=== PATIENT | male | born 1945 | race Caucasian/White ===

== ENCOUNTER → 2017-11-02 08:49 | Outpatient (CLI) | payer MEDICARE, OTHER, SELFPAY ==
[2017-11-02 14:22] LABS: Magnesium 1.9 mg/dL (1.4-2.2)
== END ==
PROVIDERS: PCP Nurse Practitioner Family; Visit Provider Nuclear Medicine Nuclear Cardiology
DX: I25.10 Atherosclerotic heart disease of native coronary artery without angina pectoris (principal); E11.9 Type 2 diabetes mellitus without complications; I47.2 Ventricular tachycardia; I35.1 Nonrheumatic aortic (valve) insufficiency; I71.9 Aortic aneurysm of unspecified site, without rupture; I65.23 Occlusion and stenosis of bilateral carotid arteries; R06.02 Shortness of breath; I10 Essential (primary) hypertension
CPT/HCPCS: 36415; 83735

== ENCOUNTER 2024-12-08 19:09 | Inpatient (IN) | payer MEDICARE, SELFPAY ==
[2024-12-08] VITALS (11 sets, daily range): BP systolic 134–163; BP diastolic 87–97; PULSE 63–97; RESP 18–20; TEMP 36.7; O2SAT 94–98; BMI 27.1
--- NOTE | 2024-12-08 19:30 | ECG_ITS ---
APPROVED REPORT Exam: Resting ECG HR:96 bpm ECG Measurements Heart Rate 96 AXES MI 195 P 32 QRSd 92 QRS 4 QT 349 T -2 QTc 402 Conclusion SINUS RHYTHM MODERATE VOLTAGE CRITERIA FOR LVH, CONSIDER NORMAL VARIANT [MEETS CRITERIA IN ONE OF: R(aVL), S(V1), R(V5), R(V5/V6)+S(V1)] MINIMAL ST DEPRESSION [0.025+ mV ST DEPRESSION] BORDERLINE ECG UNCONFIRMED REPORT Electronically signed by : Fatuma Jenkins, 12/09/2024 01:24:05
--- NOTE | 2024-12-08 19:46 | XR_ITS ---
PROCEDURE INFORMATION: Exam: XR Chest Exam date and time: 12/08/2024 7:59 PM Age: 79 years old Clinical indication: Other: Cp SOA palpitations TECHNIQUE: Imaging protocol: Radiologic exam of the chest. Views: 1 view. COMPARISON: No relevant prior studies available. FINDINGS: Lungs: Underlying pulmonary fibrotic and bronchiectatic changes. Poorly defined perihilar and peripheral densities/opacities. Pleural spaces: Unremarkable. No pleural effusion. No pneumothorax. Heart/Mediastinum: Unremarkable. No cardiomegaly. Bones/joints: Unremarkable. IMPRESSION: Underlying pulmonary fibrotic changes with poorly defined perihilar/peripheral possibly reflecting confluent fibrosis with anatomic distortion. Can not exclude overlying infiltration.
--- NOTE | 2024-12-08 19:52 | PC.NURSE ---
rounded on pt. family at bedside. voice no needs at this time.
[2024-12-08 20:03] LABS: Basophils % 0.4 % (0.1-2.0); Eosinophils # 0.2 K/mm3 (0.0-0.4); Eosinophils % 2.4 % (0.1-12.0); Hematocrit 44.2 % (42.0-52.0); Hemoglobin 14.7 g/dL (14.1-18.0); Lymphocytes % 21.1 % (10-50); Mean Corpuscular HGB Conc 33.3 g/dL (31.8-35.4); Mean Corpuscular Volume 93.2 fl (80-94); Mean Platelet Volume 9.4 fl (7.4-10.4); Monocytes # 0.8 K/mm3 (0.1-1.0); Monocytes % 8.6 % (1.7-9.3); Neutrophils # 6.3 K/mm3 (1.8-7.8); Neutrophils % 67.2 % (37.0-80.0); Platelet Count 223 K/mm3 (142-424); Red Blood Count 4.74 M/mm3 (4.60-6.20); White Blood Count 9.3 K/mm3 (4.8-10.8)
[2024-12-08 20:11] LABS: Alanine Aminotransferase 21 U/L (12-78); Albumin Level 3.9 g/dl (3.5-5.0); Albumin/Globulin Ratio 1.1 (1.1-1.8); Alkaline Phosphatase 105 U/L (38-126); Anion Gap 9.2 mEq/L (5-15); Aspartate Amino Transferase 30 U/L (17-59); Bilirubin,Total 0.5 mg/dl (0.2-1.3); Blood Urea Nitrogen 20 mg/dl (9-20); Carbon Dioxide 28 mmol/L (22.0-30.0); Chloride 105 mmol/L (98-107); Creatinine Clearance Estimated 72 mL/min (50-200); Estimated Glomerular Filt Rate 65 ml/min (>60); GFR (African American) 79 ML/MIN (>60); Globulin 3.6 g/dL (1.3-3.2); Glucose 121 mg/dl (74-100); Magnesium 1.8 mg/dl (1.6-2.3); Phosphorous 2.4 mg/dl (2.5-4.5); Potassium 4.2 mmoL/L (3.5-5.1); Sodium 138 mmol/L (136-145); Total Protein,Serum 7.5 g/dl (6.3-8.2)
[2024-12-08 20:15] LABS: D-Dimer 0.37 ug/mL (0.0-0.5)
[2024-12-08 20:29] LABS: Troponin I < 0.01 ng/ml (0.00-0.034)
--- NOTE | 2024-12-08 20:29 | HMH.EDGENADL ---
Discharge Plan Disposition Chief Complaint: Recheck/Abnormal Lab/Rx Prescriptions Prescriptions: No Action isosorbide dinitrate 30 mg tablet 30 mg PO DAILY losartan 25 mg tablet 25 mg PO DAILY aspirin 162.5 mg capsule,extended release 24hr 162.5 mg PO Q24H omega-3 fatty acids [Fish Oil Concentrate] 1,000 mg capsule 1,000 mg PO DAILY rosuvastatin 20 mg tablet 20 mg PO DAILY etodolac 400 mg tablet 400 mg PO DAILY tamsulosin 0.4 mg capsule,extended release 24hr 0.4 mg PO DAILY metoprolol succinate 50 mg tablet extended release 24 hr 50 mg PO DAILY Referrals Follow up/Referrals: Vandana Evans [Primary Care Provider] - See instructions Clinical Impressions Clinical Impression: Non-ST elevation (NSTEMI) myocardial infarction Stand Alone Forms Stand Alone Forms: Transfer Record - ED Print Language Print Language: Kiswahili Discharge ED Provider: Fatuma Jenkins General Adult HPI <Francie Knight APRN - Last Filed: 12/08/24 21:51> General Chief complaint: Recheck/Abnormal Lab/Rx Stated complaint: cardiac issues Time Seen by Provider: 12/08/24 19:40 Mode of Arrival: EMS Source of Information: Patient Limitations: No Limitations Description of Symptoms (Recalled from ER Triage Doc. by RN): ems was called out for complaints of high heart rate, when ems arrived they said he was in SVT with rate 180-190 ems reports patient converted to normal sinus without intervention patient recieved approx 600 ml of NS in route History of Present Illness HPI narrative: Patient is a 79-year-old male PMHx pulmonary fibrosis (2L NC), SUZETTE (Cpap at night) hypertension who presents to the ED for palpitations / chest pressure that occurred earlier today while in the shower, have resolved upon arrival. Related Data Home Medications ?Medication ?Instructions ?Recorded ?Confirmed aspirin 162.5 mg capsule,extended 162.5 mg PO Q24H 02/08/18 02/14/19 release 24 hr etodolac 400 mg tablet 400 mg PO DAILY 02/08/18 02/14/19 isosorbide dinitrate 30 mg tablet 30 mg PO DAILY 02/08/18 02/14/19 losartan 25 mg tablet 25 mg PO DAILY 02/08/18 02/14/19 metoprolol succinate 50 mg 50 mg PO DAILY 02/08/18 02/14/19 tablet,extended release 24 hr omega-3 fatty acids 1,000 mg 1,000 mg PO DAILY 02/08/18 02/14/19 capsule (Fish Oil Concentrate) rosuvastatin 20 mg tablet 20 mg PO DAILY 02/08/18 02/14/19 tamsulosin 0.4 mg capsule 0.4 mg PO DAILY 02/08/18 02/14/19 Allergies Allergy/AdvReac Type Severity Reaction Status Date / Time atorvastatin (ATORVASTATIN) Allergy Unknown muscles Verified 12/08/24 22:06 sore Penicillins (PENICILLINS) Allergy Unknown pass out Verified 12/08/24 22:06 PFSH <Francie Knight APRN - Last Filed: 12/08/24 21:51> [facility] Disclaimer: The information contained in this section may have been updated after the patient was seen, as this information can be updated by other users. Social History Smoking Status: Unknown if ever smoked alcohol intake: former current occupational status: retired Travel in the last 8 weeks: None Have you lived/traveled outside [place] in past 30 days?: No Contact w/someone who lives/traveled outside [place] past 30 days?: No Exposure to someone with infectious disease in past 14 days?: No Do you have a fever (greater than 100.4 F or 38 C)?: No Have you tested positive for COVID-19: No Exposed to someone with COVID-19 in past 14 days?: No Do you have a sore throat?: No Do you have a cough?: No Do you have any weakness?: No Do you have any diarrhea?: No Are you experiencing any unusual bleeding?: No Do you have any muscle aches/pain?: No Do you have any abdominal pain?: No Are you experiencing loss of taste or smell?: No Other Medical History Have you received the Flu Vaccine for this season: Yes Have you received the Pneumonia Vaccine: Yes <Francie Knight APRN - Last Filed: 12/08/24 21:51> ROS Obtained: Yes Systems reviewed as appropriate & no additional complaints except as documented Physical Exam <Francie Knight APRN - Last Filed: 12/08/24 21:51> General General appearance: alert and in no apparent distress Head Head exam: atraumatic and normocephalic Eye Eye exam: Present normal appearance and PERRL; Absent nystagmus ENT ENT exam: Present normal exam Neck Neck exam: Present normal inspection Chest Chest inspection: Present normal inspection and symmetric chest wall rise; Absent tenderness Respiratory Respiratory exam: Present wheezes (left side ) Cardiovascular Cardiovascular exam: Present regular rate Abdominal Exam Abdominal exam: Present soft and normal bowel sounds; Absent tenderness Extremities Exam Extremities exam: Present normal inspection and full ROM Back Exam Back exam: Present normal inspection and full ROM; Absent tenderness Neurological Exam Neurological exam: Present alert and oriented X3 Psychiatric Psychiatric exam: Present normal affect and normal mood Skin Skin exam: Present warm and dry Medical Decision Making <Francie Knight APRN - Last Filed: 12/08/24 21:51> Medical Records Screening: Per USPSTF and CDC recommendations, given the prevalence of disease in our region, it is our hospital?s policy to screen for HIV and viral Hepatitis for all patients aged 18 and over and those with ongoing risk factors. Ravi Inquiry Pt receiving controlled substance: No Ravi was queried for this patient: No Vital Signs: 12/08/24 19:09 Temperature 98.1 F Temperature Source Oral Pulse Rate [Left Radial] 95 H Respiratory Rate 20 Blood Pressure [Right Arm] 148/94 H Blood Pressure Mean [Right Arm] 112 Blood Pressure Source [Right Arm] Automatic Cuff Blood Pressure Position [Right Arm] Sitting 02 Sat by Pulse Oximetry 95 Oxygen Delivery Method Nasal Cannula Oxygen Flow Rate (LPM) 2 Lab Data Lab Results 12/08/24 19:47: WBC 9.3, RBC 4.74, Hgb 14.7, Hct 44.2, MCV 93.2, MCH 31.0, MCHC 33.3, RDW 13.0, Plt Count 223, MPV 9.4, Neut % (Auto) 67.2, Lymph % (Auto) 21.1, [place] % (Auto) 8.6, Eos % (Auto) 2.4, Baso % (Auto) 0.4, Neut # (Auto) 6.3, Lymph # (Auto) 2.0, [place] # (Auto) 0.8, Eos # (Auto) 0.2, Baso # (Auto) 0.0, D-Dimer 0.37, Sodium 138, Potassium 4.2, Chloride 105, Carbon Dioxide 28, Anion Gap 9.2, BUN 20, Creatinine 1.10, Estimated Creat Clear 72, Estimated GFR 65, Est GFR ( Amer) 79, Glucose 121 H, Calcium 9.0, Phosphorus 2.4 L, Magnesium 1.8, Total Bilirubin 0.5, AST 30, ALT 21, Alkaline Phosphatase 105, Troponin I < 0.01, Total Protein 7.5, Albumin 3.9, Globulin 3.6 H, Albumin/Globulin Ratio 1.1, TSH 5.91 H, Free T4 1.20, HCV Ab TTAY w/Rflx PCR Qn Negative, HIV Ag/Ab Combo Qual Negative 12/08/24 22:34: Troponin I 0.06 H 12/08/24 19:47 12/08/24 19:47 Orders (Tests/Meds): ORDERS Category Date Time Status CXR --portable [XR chest portable] Stat Exams 12/08/24 19:46 Completed CBC w/Auto Diff [Complete Blood Count Auto Diff] Stat Lab 12/08/24 19:47 Completed CMP [Comprehensive Metabolic Panel] Stat Lab 12/08/24 19:47 Completed D-Dimer Stat Lab 12/08/24 19:47 Completed Free T4 (Free Thyroxine) Stat Lab 12/08/24 19:47 Completed HIV Combo Stat Lab 12/08/24 19:47 Completed Hepatitis C Ab Qual. W/ RFX Stat Lab 12/08/24 19:47 Completed Magnesium Stat Lab 12/08/24 19:47 Completed Phosphorous Stat Lab 12/08/24 19:47 Completed TSH [Thyroid Stimulating Hormone] Stat Lab 12/08/24 19:47 Completed Trop I [Troponin I] Stat Lab 12/08/24 19:47 Completed Troponin I Q3H Lab 12/08/24 22:34 Completed Troponin I Q3H Lab 12/09/24 02:00 Ordered HEART Score History (anamnesis): Slightly suspicious ECG: Non-specific disturbance Age: >65 years Risk factors: 1-2 risk factors Troponin: </= normal limit HEART Score: 4 Medical Decision Narrative: In summary, patient is a 79-year-old male PMHx pulmonary fibrosis (2L NC), SUZETTE (Cpap at night) hypertension who presents to the ED for palpitations / chest pressure that occurred earlier today while in the shower, have resolved upon arrival. Patient states that he has a history of palpitations, has been worked up by cardiology in the past, had a negative cardiac echo, negative stress test. He denies any additional symptoms. Denies experiencing shortness of breath during episode of palpitations. Upon initial exam, patient is alert, oriented and cooperative. Patient is hemodynamically stable. Physical exam remarkable for wheezing on left lung field. Patient states he has had left lung wheezing for years. Differential diagnosis includes arrhythmia, ACS, pulmonary embolism, pneumonia, infectious process, Pulmonary fibrosis complications, among others Initial workup will be conducted with hematologic labs & imaging. Initial workup reviewed by me. CBC unremarkable for any leukocytosis, stable H&H. D-dimer 0.37. CMP unremarkable for any actionable abnormalities. Magnesium 1.8. First troponin < 0.01. I considered additional imaging however at this time it is not necessary due to normal labs and patient remains asymptomatic. Pending second troponin and final read of the chest x-ray, care transferred to Dr. Jenkins. <Fatuma Jenkins MD - Last Filed: 12/08/24 23:50> Medical Records Medical records reviewed: Yes I reviewed the patient's medical records. Vital Signs: 12/08/24 19:09 Temperature 98.1 F Temperature Source Oral Pulse Rate [Left Radial] 95 H Respiratory Rate 20 Blood Pressure [Right Arm] 148/94 H Blood Pressure Mean [Right Arm] 112 Blood Pressure Source [Right Arm] Automatic Cuff Blood Pressure Position [Right Arm] Sitting 02 Sat by Pulse Oximetry 95 Oxygen Delivery Method Nasal Cannula Oxygen Flow Rate (LPM) 2 Lab Data Lab Results 12/08/24 19:47: WBC 9.3, RBC 4.74, Hgb 14.7, Hct 44.2, MCV 93.2, MCH 31.0, MCHC 33.3, RDW 13.0, Plt Count 223, MPV 9.4, Neut % (Auto) 67.2, Lymph % (Auto) 21.1, [place] % (Auto) 8.6, Eos % (Auto) 2.4, Baso % (Auto) 0.4, Neut # (Auto) 6.3, Lymph # (Auto) 2.0, [place] # (Auto) 0.8, Eos # (Auto) 0.2, Baso # (Auto) 0.0, D-Dimer 0.37, Sodium 138, Potassium 4.2, Chloride 105, Carbon Dioxide 28, Anion Gap 9.2, BUN 20, Creatinine 1.10, Estimated Creat Clear 72, Estimated GFR 65, Est GFR ( Amer) 79, Glucose 121 H, Calcium 9.0, Phosphorus 2.4 L, Magnesium 1.8, Total Bilirubin 0.5, AST 30, ALT 21, Alkaline Phosphatase 105, Troponin I < 0.01, Total Protein 7.5, Albumin 3.9, Globulin 3.6 H, Albumin/Globulin Ratio 1.1, TSH 5.91 H, Free T4 1.20, HCV Ab TATY w/Rflx PCR Qn Negative, HIV Ag/Ab Combo Qual Negative 12/08/24 22:34: Troponin I 0.06 H Orders (Tests/Meds): ORDERS Category Date Time Status CXR --portable [XR chest portable] Stat Exams 12/08/24 19:46 Completed CBC w/Auto Diff [Complete Blood Count Auto Diff] Stat Lab 12/08/24 19:47 Completed CMP [Comprehensive Metabolic Panel] Stat Lab 12/08/24 19:47 Completed D-Dimer Stat Lab 12/08/24 19:47 Completed Free T4 (Free Thyroxine) Stat Lab 12/08/24 19:47 Completed HIV Combo Stat Lab 12/08/24 19:47 Completed Hepatitis C Ab Qual. W/ RFX Stat Lab 12/08/24 19:47 Completed Magnesium Stat Lab 12/08/24 19:47 Completed Phosphorous Stat Lab 12/08/24 19:47 Completed TSH [Thyroid Stimulating Hormone] Stat Lab 12/08/24 19:47 Completed Trop I [Troponin I] Stat Lab 12/08/24 19:47 Completed Troponin I Q3H Lab 12/08/24 22:34 Completed Troponin I Q3H Lab 12/09/24 02:00 Ordered ECG Data Tracing #1: I reviewed this ECG and interpreted as documented below: Sinus rhythm with a rate of 96. No QTc prolongation, no significant ST elevation/depression or evidence of acute ischemia HEART Score Troponin: 1-3x normal limit HEART Score: 5 Medical Decision Narrative: In summary, patient is a 79-year-old male PMHx pulmonary fibrosis (2L NC), SUZETTE (Cpap at night) hypertension who presents to the ED for palpitations / chest pressure that occurred earlier today while in the shower, have resolved upon arrival. Patient states that he has a history of palpitations, has been worked up by cardiology in the past, had a negative cardiac echo, negative stress test. He denies any additional symptoms. Denies experiencing shortness of breath during episode of palpitations. Upon initial exam, patient is alert, oriented and cooperative. Patient is hemodynamically stable. Physical exam remarkable for wheezing on left lung field. Patient states he has had left lung wheezing for years. Differential diagnosis includes arrhythmia, ACS, pulmonary embolism, pneumonia, infectious process, Pulmonary fibrosis complications, among others Initial workup will be conducted with hematologic labs & imaging. Initial workup reviewed by me. CBC unremarkable for any leukocytosis, stable H&H. D-dimer 0.37. CMP unremarkable for any actionable abnormalities. Magnesium 1.8. First troponin < 0.01. I considered additional imaging however at this time it is not necessary due to normal labs and patient remains asymptomatic. Pending second troponin and final read of the chest x-ray, care transferred to Dr. Jenkins. On my evaluation, patient remains hemodynamically stable and in no acute distress. Patient's repeat troponin had increased to 0.06. CXR was unremarkable aside from chronic pulmonary fibrotic changes. I discussed the patient's lab findings with the patient and his family at bedside and recommended admission for continued troponin trending and telemetry. Patient and family were in agreement with this plan. I discussed with the hospitalist who was in agreement with admission. Critical Care <Francie Knight APRN - Last Filed: 12/08/24 21:51> Critical Care Time Critical Care Time: No
[2024-12-08 20:43] LABS: Thyroid Stimulating Hormone 5.91 uIU/mL (0.465-4.68)
[2024-12-08 21:26] LABS: HIV Combo NEGATIVE (Negative)
--- NOTE | 2024-12-08 21:27 | PC.NURSE ---
rounded on pt at this time. pt given warm blanket. voices no needs. call light in reach. family at bedside.
[2024-12-08 21:34] LABS: Hepatitis C Ab Qual. W/ RFX NEGATIVE (Negative)
[2024-12-08 23:14] LABS: Troponin I 0.06 ng/ml (0.00-0.034)
--- NOTE | 2024-12-08 23:54 | P.HP_ITS ---
<Statement entered by Scooby Merino MD - 12/09/24 22:59> Personally evaluated patient and agree with plan of care as outlined by the MANAGER KNOWLEDGE. History of Present Illness *Admission Date: 12/08/24 *Reason for visit:: Rapid Heart Rate *History of present illness: The patient is a 79-year-old male with a past medical history of pulmonary fibrosis (on 2L nasal cannula), obstructive sleep apnea (CPAP at night), and hypertension, who presented to the emergency department (ED) for palpitations and chest pressure earlier today while showering, which resolved prior to arrival. EMS was called for a reported high heart rate, documenting supraventricular tachycardia (SVT) at 180-190 bpm, which spontaneously converted to normal sinus rhythm without intervention; he received 600 mL of normal saline en route. He reports a history of palpitations, previously evaluated by cardiology with a negative echocardiogram and stress test. He denies shortness of breath during the episode, additional symptoms, or recent trauma. On arrival, he was alert, oriented, and cooperative, with stable hemodynamics. On exam was notable for wheezing in the left lung field, a chronic finding per the patient consistent with his pulmonary fibrosis. Labs showed no leukocytosis (WBC 9.3), stable hemoglobin (Hgb 14.7), normal D-dimer (0.37), and creatinine 1.10 (eGFR 65). Initial troponin was <0.01, but a repeat at 22:34 jey to 0.06. TSH was elevated (5.91) with normal free T4 (1.20). Chest X-ray revealed underlying pulmonary fibrotic and bronchiectatic changes with poorly defined perihilar and peripheral densities/opacities, possibly reflecting confluent fibrosis with anatomic distortion, though overlying infiltration cannot be excluded. No pleural effusion, pneumothorax, or cardiomegaly was noted. Differential diagnosis includes arrhythmia (SVT, resolved), [id number] myocardial infarction (NSTEMI) given troponin rise, pulmonary fibrosis exacerbation or infection (new opacities, wheezing), and less likely pulmonary embolism (normal D-dimer). ED workup included labs and imaging. Initial interventions were not specified. Given the troponin elevation, chest pressure history, and new chest X-ray findings in a patient with significant pulmonary disease, admission to hospital medicine was warranted for cardiac and respiratory evaluation. The patient agreed to inpatient care after discussion. [facility] Disclaimer: The information contained in this section may have been updated after the patient was seen, as this information can be updated by other users. Social History Smoking Status: Unknown if ever smoked alcohol intake: former current occupational status: retired Travel in the last 8 weeks: None Have you lived/traveled outside [place] in past 30 days?: No Contact w/someone who lives/traveled outside US past 30 days?: No Exposure to someone with infectious disease in past 14 days?: No Do you have a fever (greater than 100.4 F or 38 C)?: No Have you tested positive for COVID-19: No Exposed to someone with COVID-19 in past 14 days?: No Do you have a sore throat?: No Do you have a cough?: No Do you have any weakness?: No Do you have any diarrhea?: No Are you experiencing any unusual bleeding?: No Do you have any muscle aches/pain?: No Do you have any abdominal pain?: No Are you experiencing loss of taste or smell?: No Other Medical History Have you received the Flu Vaccine for this season: Yes Have you received the Pneumonia Vaccine: Yes Review of Systems Review of Systems Review of systems (narrative): 13 point review of systems negative except as listed in HPI Meds Home Medications and Allergies Home Medications ?Medication ?Instructions ?Recorded ?Confirmed ?Type aspirin 162.5 mg capsule,extended 162.5 mg PO Q24H 02/08/18 02/14/19 History release 24 hr etodolac 400 mg tablet 400 mg PO DAILY 02/08/18 02/14/19 History isosorbide dinitrate 30 mg tablet 30 mg PO DAILY 02/08/18 02/14/19 History losartan 25 mg tablet 25 mg PO DAILY 02/08/18 02/14/19 History metoprolol succinate 50 mg 50 mg PO DAILY 02/08/18 02/14/19 History tablet,extended release 24 hr omega-3 fatty acids 1,000 mg 1,000 mg PO DAILY 02/08/18 02/14/19 History capsule (Fish Oil Concentrate) rosuvastatin 20 mg tablet 20 mg PO DAILY 02/08/18 02/14/19 History tamsulosin 0.4 mg capsule 0.4 mg PO DAILY 02/08/18 02/14/19 History New Prescriptions to Start Prescriptions: Allergies Allergy/AdvReac Type Severity Reaction Status Date / Time atorvastatin (ATORVASTATIN) Allergy Unknown muscles Verified 12/08/24 22:06 sore Penicillins (PENICILLINS) Allergy Unknown pass out Verified 12/08/24 22:06 Exam Data for Last 24 hours Vital signs and Labs for Last 24 Hours: Temp Pulse Resp BP Pulse Ox O2 Del Method O2 Flow Rate 98.1 F 95 H 20 148/94 H 95 Nasal Cannula 2 12/08/24 19:12/08/24 19:12/08/24 19:12/08/24 19:12/08/24 19:12/08/24 19:12/08/24 19:09 Laboratory Results - last 24 hr 12/08/24 19:47: WBC 9.3, RBC 4.74, Hgb 14.7, Hct 44.2, MCV 93.2, MCH 31.0, MCHC 33.3, RDW 13.0, Plt Count 223, MPV 9.4, Neut % (Auto) 67.2, Lymph % (Auto) 21.1, [place] % (Auto) 8.6, Eos % (Auto) 2.4, Baso % (Auto) 0.4, Neut # (Auto) 6.3, Lymph # (Auto) 2.0, [place] # (Auto) 0.8, Eos # (Auto) 0.2, Baso # (Auto) 0.0, D-Dimer 0.37, Sodium 138, Potassium 4.2, Chloride 105, Carbon Dioxide 28, Anion Gap 9.2, BUN 20, Creatinine 1.10, Estimated Creat Clear 72, Estimated GFR 65, Est GFR ( Amer) 79, Glucose 121 H, Calcium 9.0, Phosphorus 2.4 L, Magnesium 1.8, Total Bilirubin 0.5, AST 30, ALT 21, Alkaline Phosphatase 105, Troponin I < 0.01, Total Protein 7.5, Albumin 3.9, Globulin 3.6 H, Albumin/Globulin Ratio 1.1, TSH 5.91 H, Free T4 1.20, HCV Ab TATY w/Rflx PCR Qn Negative, HIV Ag/Ab Combo Qual Negative 12/08/24 22:34: Troponin I 0.06 H I & O for Last 24 hours: Intake & Output 12/05/24 12/06/24 12/07/24 12/08/24 23:59 23:59 23:59 23:59 Weight 90.718 kg Constitutional Constitutional: no acute distress *Routine HEENT Exam Head: Present normocephalic Eye: Present EOMI and PERRL ENT: Present mucous membranes moist *Routine Neck Exam Neck: Present supple; Absent lymphadenopathy *Routine Respiratory Exam Respiratory: Present CTA bilaterally *Routine Cardiovascular Exam Cardiovascular: Present RRR *Routine Abdominal Exam Abdominal: Present soft and normoactive bowel sounds; Absent tenderness *Routine Rectal Exam Rectal:: deferred *Routine Genitalia Exam Genitalia:: deferred *Routine Extremities Exam Extremities: Absent cyanosis, clubbing or edema *Routine Skin Exam Skin: Present warm; Absent rash *Routine Neurological Exam Neurological: Present alert and oriented X3 Assessment and Plan *Assessment and plan (1) Non-ST elevation (NSTEMI) myocardial infarction: Status: Acute Category: Medical Code(s): I21.4 - Non-ST elevation (NSTEMI) myocardial infarction (2) SVT (supraventricular tachycardia): Status: Acute Category: Medical Code(s): I47.10 - Supraventricular tachycardia, unspecified (3) Pulmonary fibrosis: Status: Acute Category: Medical Code(s): J84.10 - Pulmonary fibrosis, unspecified Plan * Resolved SVT with troponin elevation (possible NSTEMI) * Pertinent Info: Palpitations/chest pressure today, EMS noted SVT (180-190 bpm) converting to NSR without intervention. Initial troponin <0.01, repeat 0.06 at 22:34. Prior negative echo/stress test. No ongoing chest pain; hemodynamically stable. CXR without cardiomegaly. * Start aspirin 81 mg PO daily and heparin 5000 units SC BID (low-dose, bridge to workup). * Serial troponins q6h x 3; ECG with symptoms to monitor for ischemic changes. * Cardiology consult for risk stratification; consider repeat echo or stress test if troponins rise further. * Telemetry monitoring for arrhythmia recurrence (SVT history). * Hold beta-blockers (e.g., metoprolol) until pulmonary status clarified (wheezing, fibrosis). * Cardiology consult * Pulmonary fibrosis with new opacities (possible exacerbation or infection) * Pertinent Info: Chronic left-sided wheezing (per patient), CXR shows fibrotic/bronchiectatic changes with new perihilar/peripheral opacities (confluent fibrosis vs. infiltration). On 2L NC, no SOB during episode. No leukocytosis (WBC 9.3), afebrile. * Continue 2L NC, titrate to SpO2 >90%; monitor RR and O2 sat q4h. * Order sputum culture and procalcitonin to assess for infection (e.g., pneumonia). * Chest CT (high-resolution) to differentiate fibrosis progression vs. infiltrates; compare to prior if available. * Trial albuterol MDI 2 puffs q4h PRN wheezing; avoid steroids now (no clear exacerbation, troponin concern). * Pulmonary consult for fibrosis management if course suggests; assess home regimen (e.g., antifibrotics like pirfenidone). * Obstructive sleep apnea * Pertinent Info: On CPAP at night; no hypoxia reported beyond baseline (2L NC). May contribute to SVT risk. * Continue CPAP use overnight; ensure compliance (bring from home if needed). * Monitor SpO2 overnight; adjust O2 if desaturations occur. * Sleep study review if outdated (SUZETTE severity unknown). * Hypertension (chronic) * Pertinent Info: Stable BP on arrival; no home meds listed. SVT history may reflect autonomic dysregulation. * Monitor BP q6h; resume home meds (e.g., lisinopril) if known, hold if hypotensive. * Assess for hypertensive urgency during prior SVT (EMS data limited). * Subclinical hypothyroidism * Pertinent Info: TSH 5.91, free T4 1.20 (normal); no symptoms reported. Could contribute to arrhythmia risk. * Recheck TSH/free T4 in 24h; consider levothyroxine 25 mcg PO daily if TSH persists >5. * Endocrine consult if symptomatic or arrhythmia link suspected. * Mild renal dysfunction * Pertinent Info: Cr 1.10, eGFR 65; likely chronic (age-related). No NILDA (BUN 20 stable). * Monitor Cr/BUN q48h; adjust meds for eGFR 65 (e.g., heparin safe). * Strict I/Os to track fluid status (600 mL NS given). * Supportive care * DVT prophylaxis with heparin 5000 units SC BID * Diet as tolerated; no nausea reported. * Family updated; confirm prior cardiac/pulmonary workup details if possible. Disposition: The patient will be admitted to the medical floor under the hospitalist service for management of resolved SVT with troponin elevation (possible NSTEMI) and pulmonary fibrosis with new opacities (possible exacerbation or infection). He requires telemetry, serial troponins, and pulmonary evaluation, with an anticipated length of stay of 3-5 days, pending cardiac stability (troponin trend, no SVT recurrence) and respiratory clarification (CT, cultures). ICU transfer if troponins rise significantly (e.g., >0.1 with ECG changes), SVT recurs with instability, or hypoxia worsens (e.g., O2 >6L, RR >30). Discharge planning will coordinate with cardiology/pulmonology for outpatient follow-up and CPAP optimization. Goals of care discussion if clinical decline occurs, given pulmonary fibrosis prognosis.
--- NOTE | 2024-12-08 23:57 | CT_ITS ---
PROCEDURE INFORMATION: Exam: CT Chest Without Contrast; Diagnostic; High Resolution Exam date and time: 12/09/2024 12:17 AM Age: 79 years old Clinical indication: Abnormal findings; Abnormal radiologic exam of lung or chest; Additional info: Svt in the setting of pulmonary fibrosis TECHNIQUE: Imaging protocol: Diagnostic computed tomography of the chest without contrast. Exam was performed with high resolution protocol. Radiation optimization: All CT scans at this facility use at least one of these dose optimization techniques: automated exposure control; mA and/or kV adjustment per patient size (includes targeted exams where dose is matched to clinical indication); or iterative reconstruction. COMPARISON: CR XR CHEST PORTABLE 12/08/2024 7:59 PM FINDINGS: Lungs: Reticuloseptal thickening, traction bronchiectasis, honeycombing, architectural distortion, interlobular reticular opacity in peripheral and mid to lower lung zone predominant distribution. Pleural spaces: Irregular pleural Heart: Unremarkable. No cardiomegaly. No pericardial effusion. Coronary arteries: Atherosclerotic calcification of coronary arteries. Vasculature: Atherosclerotic calcification of thoracic aorta without aneurysm. Lymph nodes: Reactive type mediastinal lymph nodes. Bones/joints: Unremarkable. No acute fracture. Soft tissues: Unremarkable. IMPRESSION: Advanced, pulmonary fibrotic changes without acute findings identified.
[2024-12-09] VITALS (21 sets, daily range): BP systolic 88–162; BP diastolic 49–89; PULSE 58–100; RESP 16–20; TEMP 36.4–36.8; O2SAT 90–98; BMI 26.9
--- NOTE | 2024-12-09 | IR_ITS ---
APPROVED REPORT Patient Location: Inpatient Sailboat Captain: Adithya Wong, RT (R) PROCEDURES 1. Left heart catheterization 2. Selective coronary arteriography 3. Left ventriculography INDICATION 1. Unstable angina, 2. Coronary artery disease SCAI INDICATION Patient is a 79-year-old white male with known coronary disease who presented with pressure tightness and heaviness in the chest. Palpitations and fluttering of the heart. Found to be in supraventricular tachycardia and converted on his own. Slight leak of cardiac enzymes but minimal. Secondary to this referred directly for left heart catheterization Informed consent was obtained prior to the procedure. COMPLICATIONS None Estimated Blood Loss: Less than 10 mls TECHNIQUE One percent lidocaine used to anesthetize the right anterior aspect of the wrist. The right radial artery was accessed via the Seldinger technique. A 6 [place]awk sheath was placed in the right radial artery. 2.5 mg of Verapamil, 800 mcg of nitroglycerin, 1mg Lidocaine and 5000 U Heparin were given through the arterial sheath. The papa catheter was also used to perform left heart catheterization, left ventriculogram and selective coronary angiogram. At the end of the procedure the sheath was removed good hemostasis was achieved using Traclet band, patient was transferred to the postop holding area in stable condition. ANGIOGRAPHIC RESULTS The left main artery Angiographically normal The left anterior descending artery Had mild diffuse coronary calcification throughout its course. There is a stent in the proximal vessel free of disease. There was also a stent in the mid left anterior descending which was free of disease. Moderate luminal irregularities The circumflex artery Moderate in size. Mild calcification throughout the proximal and mid vessel with smooth diffuse 20 to 30% stenoses The right coronary artery Large and dominant. There is smooth 40 to 50% ostial/proximal stenosis. No damping of pressure. Good reflux of contrast. Moderate calcification throughout the right coronary artery. There is a 40% napkin ring distal stenosis prior to the takeoff of the large posterior descending artery and posterior lateral branch. Excellent flow into the distal vessel. Calcification versus stent in the mid posterior lateral branch of the right coronary artery. No significant stenoses at that level The BEE ventriculogram reveals Normal left ventricular systolic function with an ejection fraction of 60% The left ventricular end-diastolic pressure 10 Right radial sheath removed and radial band placed without difficulty IMPRESSION 1. Mild to moderate diffuse coronary artery disease 2. Moderate diffuse coronary calcification 3. Patent stent in the proximal and mid left anterior descending 4. Patent stent versus calcium in the mid posterior lateral branch of the right coronary artery 5. Normal left ventricular systolic function 6. Normal left ventricular end-diastolic pressure 7. Successful placement of a radial band on the right radial artery PLAN 1. Patient will continue with aggressive medical therapy. Nothing appears to be greater than 40-50% at this time. Smooth stenoses in the right coronary artery which is a very large vessel in the ostial/proximal and distal portion. Excellent flow to the posterior descending artery and posterior lateral branches. Patient was tachycardic and in supraventricular tachycardia. No significant leak of cardiac enzymes. Asymptomatic since back in normal sinus rhythm. Will continue with aggressive medical therapy. No intervention needed at this time. Left ventricular function is normal. Follow-up in cardiology clinic in 1 to 2 weeks for further evaluation and treatment Electronically signed by : Navarro Eason MD 12/09/2024 15:03:59
--- NOTE | 2024-12-09 00:24 | PC.NURSE ---
report called to Louise RN at this time.
--- NOTE | 2024-12-09 00:31 | PC.NURSE ---
pt back in room from CT
--- NOTE | 2024-12-09 00:57 | PC.NURSE ---
Patient arrived to floor via wheelchair from ED at 00:55.
[2024-12-09] MEDS: HEPARIN SODIUM 5,000 UNIT/ML VIAL 5000 UNIT SUBCUT ×2 (01:06→09:49)
--- NOTE | 2024-12-09 01:15 | PC.NURSE ---
Confirmed the patient's NPO diet with Becky GONZALEZ at this time. He stated to keep the patient NPO, but is allowing a few ice chips.
--- NOTE | 2024-12-09 01:30 | PC.NURSE ---
Addendum entered by Louise Kinney RN 12/09/24 03:14: Nasal cannula is humidified. Addendum entered by Louise Kinney RN 12/09/24 03:09: At this time, the patient requested to remove the CPAP mask. He stated that he could not sleep with it on, and the CPAP machine was too noisy for him. Nasal cannula (2 L oxygen flow) was reapplied. Respiratory was informed about this. When asked, the patient stated that he can have someone bring his own personal CPAP machine at home tomorrow, as applicable. Original Note: Respiratory was paged at 01:26 for bedtime CPAP application.
[2024-12-09 01:34] LABS: INR 0.99 (0.9-1.1); Prothrombin Time 11.1 seconds (10.1-12.5)
[2024-12-09 01:50] LABS: Troponin I 0.07 ng/ml (0.00-0.034)
--- NOTE | 2024-12-09 04:11 | PC.NURSE ---
Mr Sheldon Quesada was newly admitted this shift on behalf of an NSTEMI + SVT. Thus far, the patient has not had any complaints of chest pain nor heart palpitations. The patient has been running normal sinus rhythm on telemetry this shift. Vital signs are stable. Troponins elevated. A CPAP machine was attempted to be utilized by the patient tonight, but the patient requested it to be removed soon after due to interruption of sleep (see prior note). Oxygen saturations remain > 90% on 2 L of oxygen via nasal cannula. Upon auscultation of his lungs, diminished sounds throughout and crackles in the base was heard on the left side, and clear but diminished sounds were heard throughout on the right side. Auscultation of his heart and bowels were within normal findings. Admission assessment and home medication reconciliation was completed this shift by the charge nurse (Gavin Mcknight RN). Patient is ambulatory. At this time, the patient is resting in bed without any further complaints; eyes are closed and respirations are even/unlabored. No acute changes noted thus far. Call light within reach.
[2024-12-09 04:25] LABS: INR 1.01 (0.9-1.1); Prothrombin Time 11.3 seconds (10.1-12.5)
[2024-12-09 04:29] LABS: Chloride 103 mmol/L (98-107); Potassium 4.4 mmoL/L (3.5-5.1); Sodium 137 mmol/L (136-145)
[2024-12-09 04:31] LABS: Blood Urea Nitrogen 18 mg/dl (9-20); Creatinine Clearance Estimated 79 mL/min (50-200); Estimated Glomerular Filt Rate 72 ml/min (>60); GFR (African American) 88 ML/MIN (>60)
[2024-12-09 04:32] LABS: Anion Gap 8.4 mEq/L (5-15); Calcium 8.7 mg/dl (8.4-10.2); Carbon Dioxide 30 mmol/L (22.0-30.0); Cholesterol 122 mg/dl (140-200); Glucose 114 mg/dl (74-100); Phosphorous 3.3 mg/dl (2.5-4.5); Triglycerides 92 mg/dl (30-150); VLDL Cholesterol 18 mg/dL (0-40)
[2024-12-09 04:33] LABS: Chol/HDL Ratio 3.3 (1-3.5); HDL Cholesterol 37 mg/dl (40-60); Magnesium 1.9 mg/dl (1.6-2.3)
[2024-12-09 04:43] LABS: Direct LDL Cholesterol 57.49 mg/dL (100-129)
[2024-12-09 04:53] LABS: Troponin I 0.07 ng/ml (0.00-0.034)
[2024-12-09 04:57] LABS: Basophils % 0.5 % (0.1-2.0); Eosinophils # 0.1 K/mm3 (0.0-0.4); Eosinophils % 1.6 % (0.1-12.0); Hematocrit 41.1 % (42.0-52.0); Hemoglobin 13.8 g/dL (14.1-18.0); Lymphocytes # 2.1 K/mm3 (0.7-4.5); Lymphocytes % 25.5 % (10-50); Mean Corpuscular HGB Conc 33.6 g/dL (31.8-35.4); Mean Corpuscular Hemoglobin 31.4 pg (27.0-31.2); Mean Corpuscular Volume 93.6 fl (80-94); Mean Platelet Volume 9.6 fl (7.4-10.4); Monocytes # 0.7 K/mm3 (0.1-1.0); Monocytes % 8.2 % (1.7-9.3); Neutrophils # 5.2 K/mm3 (1.8-7.8); Neutrophils % 63.7 % (37.0-80.0); Platelet Count 213 K/mm3 (142-424); Red Blood Count 4.39 M/mm3 (4.60-6.20); Red Cell Distribution Width 12.9 % (11.5-17.5); White Blood Count 8.1 K/mm3 (4.8-10.8)
--- NOTE | 2024-12-09 07:59 | HMH.PHAINT1 ---
Pharmacy Intervention Comments: MEDICATION RECONCILIATION COMPLETED ON PATIENT USING EXTERNAL FILL HISTORY FROM PHARMACY. -MAIA HOBBS, JOSELYND
--- NOTE | 2024-12-09 09:23 | CA_ITS ---
APPROVED REPORT EXAM: Comprehensive 2D, Doppler, and color-flow Echocardiogram Housing Coordinator: Marium Dowd RVT Ht: 6 ft 0 in Wt: 199lbs BSA: 2.13 BP: 148/94 mmHg Indications: NSTEMI,SVT,SUZETTE,PULMONARY FIBROSIS,HTN,CAD,HX ABLATION TDS-OVERLAYING LUNG 2D Dimensions IVSd 0.75 cm M: 0.6-1.2 LVEF (Visual) 61.50 % PWd 0.82 cm M: 0.6 - 1.2 LA Volume 36.80 mL LVDd 4.95 cm M: 4.2 - 5.9 LA Volume Index 17.28 mL/m2 (M/F) 16-34 LVDs 3.31 cm M: 2.5 - 4.0 M-Mode Dimensions LA Diam 4.88 cm (1.9-4.0) TAPSE 2.07 (<1.7) LV Diastology E Decel Time 200 (160-240 msec) E/A Ratio 1.1 Aortic Valve AKIKO Index 1.72 cm2/m2 AoV Peak [place]. 131.0 (50-130 cm/s) AI PHT 3808.00 ms AO Peak GR. 6.80 mmHg AO Mean GR. 3.70 (<5 mmHg) AO VTI 27.3 (18-25 cm) AKIKO (VTI) 3.74 (2.5-4.5 cm2) Mitral Valve MV E Max [place]. 95.0 (40-130 cm/s) MV A Velocity 85.0 (40-130 cm/s) E/A Ratio 1.11 MV PHT 59.0 ms Pulmonary Valve PV Peak Velocity 57.0 (50-150 cm/s) Tricuspid Valve TR P. Velocity 265.00 cm/s RAP Estimate 10.00 mmHg RVSP 38.00 mmHg Left Ventricle The left ventricle is normal size. The left ventricular systolic function is normal. The left ventricular ejection fraction is within the normal range. There is increased LV wall thickness. There is normal LV segmental wall motion. Transmitral Doppler flow pattern suggests impaired LV relaxation. LVEF is 55%. Right Ventricle The right ventricle is mildly dilated. The right ventricular systolic function is normal. Atria Left atrium is mildly dilated. Right atrium is mildly dilated. There is no Doppler evidence of interatrial shunt. Aortic Valve The aortic valve is mildly thickened. Mild aortic regurgitation. There is no aortic valvular stenosis. Mitral Valve The mitral valve is normal in structure. No evidence of mitral valve stenosis. Trace mitral regurgitation. Tricuspid Valve Tricuspid valve is grossly normal in structure and function. Trace tricuspid regurgitation. There is insufficient TR jet to estimate RVSP. Pulmonic Valve The pulmonary valve is normal in structure. Trace pulmonic regurgitation. Great Vessels The aortic root is normal in size. IVC is normal in size and collapses >50% with inspiration. Pericardium There is no pericardial effusion. Other Information Study Quality: Fair Conclusion Normal biventricular systolic function. Mild RV dilation. Mild biatrial dilation. Mild AI. Electronically signed by : Apurva Velasco MD 12/10/2024 11:48:54
[2024-12-09] MEDS: MAGNESIUM SULFATE IN WATER 2 GM/50 ML PIGGYBACK IV (09:45)
[2024-12-09] MEDS: LEVOTHYROXINE 50MCG (0.05MG) TAB 50 MCG PO (09:49)
[2024-12-09] MEDS: TAMSULOSIN 0.4MG CAPSULE 0.4 MG PO (09:49)
[2024-12-09] MEDS: ASPIRIN EC 81MG TABLET 81 MG PO (09:49)
[2024-12-09] MEDS: CLOPIDOGREL 75MG TAB 75 MG PO (09:49)
[2024-12-09] MEDS: METOPROLOL SUCCINATE XL 50MG TABLET 50 MG PO (09:49)
[2024-12-09] MEDS: IRBESARTAN 75MG TABLET 37.5 MG PO (09:49)
[2024-12-09] MEDS: ISOSORBIDE MONO 30MG TAB.ER.24H 30 MG PO (09:49)
[2024-12-09 11:18] LABS: NT Pro Brain Natriuretic Pep. 393 pg/mL (0-450)
[2024-12-09 11:29] LABS: Adenovirus,PCR Not Detected (NotDetected); Bordetella Pertussis Not Detected (NotDetected); Chlamydophila Pneumoniae, PCR Not Detected (NotDetected); Coronavirus 19, PCR Not Detected (NotDetected); Coronavirus 229E Not Detected (NotDetected); Coronavirus NL63 Not Detected (NotDetected); Coronavirus OC43 Not Detected (NotDetected); Coronovirus HKU1,PCR Not Detected (NotDetected); Human Metapneumovirus Not Detected (NotDetected); Influenza A, PCR Not Detected (NotDetected); Influenza AH1, 2009 Not Detected (NotDetected); Influenza AH1, PCR Not Detected (NotDetected); Influenza AH3,PCR Not Detected (NotDetected); Influenza B, PCR Not Detected (NotDetected); Mycoplasma Pneumoniae, PCR Not Detected (NotDetected); Parainfluenza 1, PCR Not Detected (NotDetected); Parainfluenza 2, PCR Not Detected (NotDetected); Parainfluenza 3, PCR Not Detected (NotDetected); Parainfluenza 4, PCR Not Detected (NotDetected); Respiratory Syncytial Virus Not Detected (NotDetected); Rhinovirus/Enterovirus Not Detected (NotDetected)
--- NOTE | 2024-12-09 12:11 | P.CONCA_ITS ---
History of Present Illness History of Present Illness Consult date: 12/09/24 Requesting physician: Scooby Merino Chief complaint: racing of the heart History of present illness: This is a 79-year-old white gentleman who presented to the emergency department with complaints of palpitations and a rapid heart rate. The patient does have a past medical history of pulmonary fibrosis, obstructive sleep apnea, coronary artery disease status post stenting, hypertension and hyperlipidemia. The patient states that he got in the shower on Monday night when he had sudden onset of palpitations and racing of the heart. He states that he felt like his heart was going to beat out of his chest. He states that he got out of the shower and sat down he tried to bear down like he was having a bowel movement but this did not break the episode. He called EMS. When EMS arrived they reported that he had a high heart rate documenting in SVT with a heart rate at 180 to 190 bpm. This spontaneously converted to sinus rhythm without intervention. The patient denied having any chest pain or pressure. He states that he is constantly short of breath. He states that he is short of breath at rest and it is significantly worse with exertion. He states that the shortness of breath does improve with rest but does not completely resolve. He denies any lower extremity edema. He denies any fever, chills, nausea, vomiting, diarrhea, PND or orthopnea. Upon arrival to the emergency department the patient initially had a negative troponin but then repeat troponin was elevated at 0.06 and then elevated to 0.07 consistent with a non-STEMI. The patient was admitted to the hospital for further evaluation and treatment. [facility] Disclaimer: The information contained in this section may have been updated after the patient was seen, as this information can be updated by other users. Medical History (Updated 12/09/24 @ 12:21 by Sri Garza APRN) Hyperlipidemia Coronary artery disease Osteoarthritis Hypertension Prostate cancer History of left heart catheterization Surgical History (Updated 12/09/24 @ 12:21 by Sri Garza APRN) History of coronary artery stent placement History of prior ablation treatment History of cardiac ablation for atrial fibrillation H/O hernia repair History of appendectomy Social History (Updated 12/09/24 @ 01:19 by Cleopatra Mcknight RN) Smoking Status: Never smoker alcohol intake: never current occupational status: retired Travel in the last 8 weeks: None Have you lived/traveled outside [place] in past 30 days?: No Contact w/someone who lives/traveled outside [place] past 30 days?: No Exposure to someone with infectious disease in past 14 days?: No Do you have a fever (greater than 100.4 F or 38 C)?: No Have you tested positive for COVID-19: No Exposed to someone with COVID-19 in past 14 days?: No Do you have a sore throat?: No Do you have a cough?: No Do you have any weakness?: No Are you experiencing any nausea/vomitting?: No Do you have any diarrhea?: No Are you experiencing any unusual bleeding?: No Do you have any muscle aches/pain?: No Do you have any abdominal pain?: No Are you experiencing loss of taste or smell?: No Review of Systems Review of Systems Review of systems:: pertinent systems reviewed and negative unless documented below Constitutional Constitutional: Reports system reviewed and no additional complaints, except as documented Eyes Eyes: Reports system reviewed and no additional complaints, except as documented ENT Ears, Nose, Mouth, and Throat: Reports system reviewed and no additional complaints, except as documented *Cardiovascular Cardiovascular: Reports system reviewed and no additional complaints, except as documented, Denies chest pain, Reports dyspnea, Reports dyspnea on exertion, Reports orthopnea, Reports palpitations and Reports rapid heart rate *Respiratory Respiratory: Reports system reviewed and no additional complaints, except as documented, Reports dyspnea and Reports dyspnea on exertion *Gastrointestinal Gastrointestinal: Reports system reviewed and no additional complaints, except as documented *Genitourinary Genitourinary: Reports system reviewed and no additional complaints, except as documented *Musculoskeletal Musculoskeletal: Reports system reviewed and no additional complaints, except as documented Integumentary/Breasts Skin/Breast: Reports system reviewed and no additional complaints, except as documented *Neurologic Neurologic: Reports system reviewed and no additional complaints, except as documented Psychiatric Psychiatric: Reports system reviewed and no additional complaints, except as documented Endocrine Endocrine: Reports system reviewed and no additional complaints, except as documented and Reports palpitations Hematologic/Lymphatic Hematologic/Lymphatic: Reports system reviewed and no additional complaints, except as documented Allergic/Immunologic Allergic/Immunologic: Reports system reviewed and no additional complaints, except as documented Exam Data for Last 24 hours Vital signs and Labs for Last 24 Hours: Temp Pulse Resp BP Pulse Ox O2 Del Method O2 Flow Rate 98.3 F 63 18 128/73 96 Nasal Cannula 2 12/09/24 11:12 12/09/24 11:12 12/09/24 11:12 12/09/24 11:12 12/09/24 11:12 12/09/24 11:12 12/09/24 11:12 Laboratory Results - last 24 hr 12/08/24 19:47: WBC 9.3, RBC 4.74, Hgb 14.7, Hct 44.2, MCV 93.2, MCH 31.0, MCHC 33.3, RDW 13.0, Plt Count 223, MPV 9.4, Neut % (Auto) 67.2, Lymph % (Auto) 21.1, [place] % (Auto) 8.6, Eos % (Auto) 2.4, Baso % (Auto) 0.4, Neut # (Auto) 6.3, Lymph # (Auto) 2.0, [place] # (Auto) 0.8, Eos # (Auto) 0.2, Baso # (Auto) 0.0, D-Dimer 0. 37, Sodium 138, Potassium 4.2, Chloride 105, Carbon Dioxide 28, Anion Gap 9.2, BUN 20, Creatinine 1.10, Estimated Creat Clear 72, Estimated GFR 65, Est GFR ( Amer) 79, Glucose 121 H, Calcium 9.0, Phosphorus 2.4 L, Magnesium 1.8, Total Bilirubin 0.5, AST 30, ALT 21, Alkaline Phosphatase 105, Troponin I < 0.01, Total Protein 7.5, Albumin 3.9, Globulin 3.6 H, Albumin/Globulin Ratio 1.1, TSH 5.91 H, Free T4 1.20, HCV Ab TATY w/Rflx PCR Qn Negative, HIV Ag/Ab Combo Qual Negative 12/08/24 22:34: Troponin I 0.06 H 12/09/24 01:15: PT 11.1, INR 0.99, Troponin I 0.07 H 12/09/24 03:55: WBC 8.1, RBC 4.39 L, Hgb 13.8 L, Hct 41.1 L, MCV 93.6, MCH 31.4 H, MCHC 33.6, RDW 12.9, Plt Count 213, MPV 9.6, Neut % (Auto) 63.7, Lymph % (Auto) 25.5, [place] % (Auto) 8.2, Eos % (Auto) 1.6, Baso % (Auto) 0.5, Neut # (Auto) 5.2, Lymph # (Auto) 2.1, [place] # (Auto) 0.7, Eos # (Auto) 0.1, Baso # (Auto) 0.0, PT 11.3, INR 1.01, Sodium 137, Potassium 4.4, Chloride 103, Carbon Dioxide 30, Anion Gap 8.4, BUN 18, Creatinine 1.00, Estimated Creat Clear 79, Estimated GFR 72, Est GFR ( Amer) 88, Glucose 114 H, Calcium 8.7, Phosphorus 3.3 D, Magnesium 1.9, Troponin I 0.07 H, NT-Pro-B Natriuret Pep 393, Triglycerides 92, Cholesterol 122 L, LDL Cholesterol Direct 57.49 L, VLDL Cholesterol 18, HDL Cholesterol 37 L, Cholesterol/HDL Ratio 3.3 I & O for Last 24 hours: Intake & Output 12/06/24 12/07/24 12/08/24 12/09/24 23:59 23:59 23:59 23:59 Intake Total 410 / 410 Output Total 0 / 0 Balance 410 / 410 Weight 200 lb 199 lb Constitutional Constitutional: no acute distress and average body habitus *Routine HEENT Exam Head: Present normocephalic and atraumatic ENT: Present mucous membranes moist *Routine Neck Exam Neck: Present supple, full ROM and normal carotid upstroke; Absent JVD, carotid bruit or lymphadenopathy *Routine Respiratory Exam Respiratory: Present CTA bilaterally, normal respiratory effort, able to speak in complete sentences and symmetric chest movement *Routine Cardiovascular Exam Cardiovascular: Present RRR, Normal S1 and Normal S2; Absent murmur or gallop *Routine Abdominal Exam Abdominal: Present soft and normoactive bowel sounds; Absent tenderness, distended or organomegaly *Routine Extremities Exam Extremities: Present full ROM, pulses intact and normal capillary refill; Absent cyanosis, clubbing or edema *Routine Skin Exam Skin: Present intact and warm; Absent erythema *Routine Neurological Exam Neurological: Present alert, oriented X3 and CN II-XII intact; Absent sensory deficit or motor deficit Routine Psychiatric Exam Psychiatric: Present normal affect Meds Home Medications and Allergies Home Medications ?Medication ?Instructions ?Recorded ?Confirmed ?Type losartan 25 mg tablet 25 mg PO DAILY 02/08/18 12/09/24 History metoprolol succinate 50 mg 50 mg PO BID 02/08/18 12/09/24 History tablet,extended release 24 hr rosuvastatin 20 mg tablet 20 mg PO DAILY 02/08/18 12/09/24 History tamsulosin 0.4 mg capsule 0.4 mg PO DAILY 02/08/18 12/09/24 History aspirin 81 mg capsule 81 mg PO DAILY 12/09/24 12/09/24 History clopidogrel 75 mg tablet 75 mg PO DAILY 12/09/24 12/09/24 History isosorbide mononitrate 30 mg 30 mg PO DAILY 12/09/24 12/09/24 History tablet,extended release 24 hr levothyroxine 50 mcg tablet 50 mcg PO DAILY 12/09/24 12/09/24 History montelukast 10 mg tablet 10 mg PO HS 12/09/24 12/09/24 History New Prescriptions to Start Prescriptions: Allergies Allergy/AdvReac Type Severity Reaction Status Date / Time atorvastatin (ATORVASTATIN) Allergy Unknown muscles Verified 12/08/24 22:06 sore Penicillins (PENICILLINS) Allergy Unknown pass out Verified 12/08/24 22:06 Assessment and Plan *Assessment and plan (1) Non-ST elevation (NSTEMI) myocardial infarction: Status: Acute Category: Medical Code(s): I21.4 - Non-ST elevation (NSTEMI) myocardial infarction (2) SVT (supraventricular tachycardia): Status: Acute Category: Medical Code(s): I47.10 - Supraventricular tachycardia, unspecified (3) Pulmonary fibrosis: Status: Acute Category: Medical Code(s): J84.10 - Pulmonary fibrosis, unspecified (4) Coronary artery disease: Status: Acute Qualifiers: Associated angina: with other forms of angina Coronary Disease- Associated Artery/Lesion type: [place] artery [place] vs. transplanted heart: [place] heart Qualified Code(s): I25.118 - Atherosclerotic heart disease of [place] coronary artery with other forms of angina pectoris Category: Medical Code(s): I25.10 - Atherosclerotic heart disease of [place] coronary artery without angina pectoris (5) Hypertension: Status: Acute Qualifiers: Hypertension type: primary hypertension Qualified Code(s): I10 - Essential (primary) hypertension Category: Medical Code(s): I10 - Essential (primary) hypertension (6) Hyperlipidemia: Status: Acute Qualifiers: Hyperlipidemia type: mixed hyperlipidemia Qualified Code(s): E78.2 - Mixed hyperlipidemia Category: Medical Code(s): E78.5 - Hyperlipidemia, unspecified (7) History of prior ablation treatment: Status: Acute Category: Surgical Code(s): Z98.890 - Other specified postprocedural states (8) History of coronary artery stent placement: Status: Acute Category: Surgical Code(s): Z95.5 - Presence of coronary angioplasty implant and graft Plan Plan: 1. The patient presented to the hospital with complaints of palpitations and r acing of the heart. EMS reported the patient was in SVT with a heart rate of 180 to 190 bpm. He spontaneously converted back to sinus rhythm with no intervention. He has remained in sinus rhythm since that time. He remains on a beta-lynn. Recommend a 30-day event monitor at the time of discharge. 2. The patient does have an elevated troponin consistent with a non-STEMI. He has a history of known coronary artery disease with a history of 2 or 3 stents placed several years ago. He states his first stent was placed approximately 15 years ago and he had an ablation the next day. Then he had 1 or 2 more stents placed approximately 4 years ago. Due to his elevated troponin and known history of coronary artery disease, we will plan to proceed with left cardiac catheterization today for further evaluation of coronary artery disease. Leila score is 188. 3. The patient has been educated the risk and benefits of proceeding with left cardiac catheterization. The patient verbalizes understanding and is agreeable in proceeding with the procedure. 4. The patient will be n.p.o. after lunch in preparation for left cardiac catheterization. 5. Will get an echocardiogram to evaluate his LV function secondary to his non- STEMI. Preliminary ejection fraction is normal. 6. Continue aspirin 81 mg daily and Plavix 75 mg daily for dual antiplatelet therapy. 7. His blood pressure is well-controlled. Continue losartan and Toprol. 8. His LDL goal is less than 55. His LDL is 57. He is on Crestor. 9. The patient does have a history of advanced pulmonary fibrosis. He does wear oxygen at home. Will defer to the hospitalist. 10. Further recommendations will be made pending the patient's response to treatment and the results of his left cardiac catheterization and echocardiogram today. Thank you for the opportunity to participate in the care of this patient. All recommendations and orders are per Dr. Velasco.
[2024-12-09] MEDS: LIDOCAINE 1% 10ML MDV 20 ML IJ (14:20)
[2024-12-09] MEDS: diphenhydrAMINE 50MG/ML VIAL 50 MG IV (14:20)
[2024-12-09] MEDS: VERAPAMIL 2.5MG/ML 2ML VIAL 2.5 MG IV (14:20)
[2024-12-09] MEDS: 0.9 % SODIUM CHLORIDE 500 ML 25 ML IV (14:20)
[2024-12-09] MEDS: HEPARIN 1,000 UNITS/ML 10ML VIAL (CATH LAB) 10000 UNIT IV (14:20)
[2024-12-09] MEDS: HEPARIN 1,000 UNITS/500ML NS (CATH LAB) 3000 UNIT IV (14:21)
[2024-12-09] MEDS: FENTANYL 100MCG/2ML VIAL 50 MCG IV (14:21)
[2024-12-09] MEDS: NITROGLYCERIN 800MCG/8ML SYR (CATH LAB) 800 MCG IA (14:21)
[2024-12-09] MEDS: MIDAZOLAM HCL 1MG/ML 5ML VIAL 1 MG IV (14:21)
--- NOTE | 2024-12-09 15:20 | EXP.DC.SUM ---
General Admission date:: 12/08/24 HPI HPI HPI: The patient is a 79-year-old male with a past medical history of pulmonary fibrosis (on 2L nasal cannula), obstructive sleep apnea (CPAP at night), and hypertension, who presented to the emergency department (ED) for palpitations and chest pressure earlier today while showering, which resolved prior to arrival. EMS was called for a reported high heart rate, documenting supraventricular tachycardia (SVT) at 180-190 bpm, which spontaneously converted to normal sinus rhythm without intervention; he received 600 mL of normal saline en route. He reports a history of palpitations, previously evaluated by cardiology with a negative echocardiogram and stress test. He denies shortness of breath during the episode, additional symptoms, or recent trauma. On arrival, he was alert, oriented, and cooperative, with stable hemodynamics. On exam was notable for wheezing in the left lung field, a chronic finding per the patient consistent with his pulmonary fibrosis. Labs showed no leukocytosis (WBC 9.3), stable hemoglobin (Hgb 14.7), normal D-dimer (0.37), and creatinine 1.10 (eGFR 65). Initial troponin was <0.01, but a repeat at 22:34 jey to 0.06. TSH was elevated (5.91) with normal free T4 (1.20). Chest X-ray revealed underlying pulmonary fibrotic and bronchiectatic changes with poorly defined perihilar and peripheral densities/opacities, possibly reflecting confluent fibrosis with anatomic distortion, though overlying infiltration cannot be excluded. No pleural effusion, pneumothorax, or cardiomegaly was noted. Differential diagnosis includes arrhythmia (SVT, resolved), [id number] myocardial infarction (NSTEMI) given troponin rise, pulmonary fibrosis exacerbation or infection (new opacities, wheezing), and less likely pulmonary embolism (normal D-dimer). ED workup included labs and imaging. Initial interventions were not specified. Given the troponin elevation, chest pressure history, and new chest X-ray findings in a patient with significant pulmonary disease, admission to hospital medicine was warranted for cardiac and respiratory evaluation. The patient agreed to inpatient care after discussion. Hospital Course Hospital Course Hospital Course: Sheldon Quesada is a 79-year-old male who presented with palpitations, chest pressure and was admitted for resolved SVT and NSTEMI. #SVT, resolved #NSTEMI #History of CAD with stents #Hypertension #Hyperlipidemia ? Cardiology consulted, s/p [facility] without significant occlusive disease. No stents needed. ? Continue home aspirin 81 mg, Plavix 75 mg, metoprolol succinate 50 mg twice daily, rosuvastatin, Imdur, losartan. ? Patient is chest pain-free, no palpitations. No significant meds on telemetry. ? Will follow-up with cardiology within 2 weeks. #Hypothyroidism ? Continue home levothyroxine. #Pulmonary fibrosis ? Stable, on room air. Referred to pulmonology. Exam Data for Last 24 hours Vital signs and Labs for Last 24 Hours: Temp Pulse Resp BP Pulse Ox O2 Del Method O2 Flow Rate 98.3 F 60 20 118/60 97 Nasal Cannula 2 12/09/24 11:12 12/09/24 15:10 12/09/24 15:10 12/09/24 15:10 12/09/24 15:10 12/09/24 15:10 12/09/24 15:10 Laboratory Results - last 24 hr 12/08/24 19:47: WBC 9.3, RBC 4.74, Hgb 14.7, Hct 44.2, MCV 93.2, MCH 31.0, MCHC 33.3, RDW 13.0, Plt Count 223, MPV 9.4, Neut % (Auto) 67.2, Lymph % (Auto) 21.1, [place] % (Auto) 8.6, Eos % (Auto) 2.4, Baso % (Auto) 0.4, Neut # (Auto) 6.3, Lymph # (Auto) 2.0, [place] # (Auto) 0.8, Eos # (Auto) 0.2, Baso # (Auto) 0.0, D-Dimer 0.37, Sodium 138, Potassium 4.2, Chloride 105, Carbon Dioxide 28, Anion Gap 9.2, BUN 20, Creatinine 1.10, Estimated Creat Clear 72, Estimated GFR 65, Est GFR ( Amer) 79, Glucose 121 H, Calcium 9.0, Phosphorus 2.4 L, Magnesium 1.8, Total Bilirubin 0.5, AST 30, ALT 21, Alkaline Phosphatase 105, Troponin I < 0.01, Total Protein 7.5, Albumin 3.9, Globulin 3.6 H, Albumin/Globulin Ratio 1.1, TSH 5.91 H, Free T4 1.20, HCV Ab TATY w/Rflx PCR Qn Negative, HIV Ag/Ab Combo Qual Negative 12/08/24 22:34: Troponin I 0.06 H 12/09/24 01:15: PT 11.1, INR 0.99, Troponin I 0.07 H 12/09/24 03:55: WBC 8.1, RBC 4.39 L, Hgb 13.8 L, Hct 41.1 L, MCV 93.6, MCH 31.4 H, MCHC 33.6, RDW 12.9, Plt Count 213, MPV 9.6, Neut % (Auto) 63.7, Lymph % (Auto) 25.5, [place] % (Auto) 8.2, Eos % (Auto) 1.6, Baso % (Auto) 0.5, Neut # (Auto) 5.2, Lymph # (Auto) 2.1, [place] # (Auto) 0.7, Eos # (Auto) 0.1, Baso # (Auto) 0.0, PT 11.3, INR 1.01, Sodium 137, Potassium 4.4, Chloride 103, Carbon Dioxide 30, Anion Gap 8.4, BUN 18, Creatinine 1.00, Estimated Creat Clear 79, Estimated GFR 72, Est GFR ( Amer) 88, Glucose 114 H, Calcium 8.7, Phosphorus 3.3 D, Magnesium 1.9, Troponin I 0.07 H, NT-Pro-B Natriuret Pep 393, Triglycerides 92, Cholesterol 122 L, LDL Cholesterol Direct 57.49 L, VLDL Cholesterol 18, HDL Cholesterol 37 L, Cholesterol/HDL Ratio 3.3 12/09/24 11:25: Chlamy pneumoniae PCR Not detected, Adenovirus (PCR) Not detected, B. pertussis DNA (PCR) Not detected, Coronavirus OC43 (PCR) Not detected, Coronavirus HKU1 (PCR) Not detected, Coronavirus 229E (PCR) Not detected, SARS-CoV-2 (PCR) Not detected, Coronavirus NL63 (PCR) Not detected, Human Metapneumovir PCR Not detected, Influenza A (H1) PCR Not detected, Influ A (H1N1/09) PCR Not detected, Influenza A (H3) PCR Not detected, Influenza Type A (PCR) Not detected, Influenza Type B (PCR) Not detected, M. pneumoniae (PCR) Not detected, Parainfluenza 1 (PCR) Not detected, Parainfluenza 2 (PCR) Not detected, Parainfluenza 3 (PCR) Not detected, Parainfluenza 4 (PCR) Not detected, RSV (PCR) Not detected, Entero/Rhino (PCR) Not detected Temp Pulse Resp BP Pulse Ox O2 Del Method O2 Flow Rate 98.3 F 63 18 128/73 96 Nasal Cannula 2 12/09/24 11:12 12/09/24 11:12 12/09/24 11:12 12/09/24 11:12 12/09/24 11:12 12/09/24 11:12 12/09/24 11:12 Laboratory Results - last 24 hr 12/08/24 19:47: WBC 9.3, RBC 4.74, Hgb 14.7, Hct 44.2, MCV 93.2, MCH 31.0, MCHC 33.3, RDW 13.0, Plt Count 223, MPV 9.4, Neut % (Auto) 67.2, Lymph % (Auto) 21.1, [place] % (Auto) 8.6, Eos % (Auto) 2.4, Baso % (Auto) 0.4, Neut # (Auto) 6.3, Lymph # (Auto) 2.0, [place] # (Auto) 0.8, Eos # (Auto) 0.2, Baso # (Auto) 0.0, D-Dimer 0.37, Sodium 138, Potassium 4.2, Chloride 105, Carbon Dioxide 28, Anion Gap 9.2, BUN 20, Creatinine 1.10, Estimated Creat Clear 72, Estimated GFR 65, Est GFR ( Amer) 79, Glucose 121 H, Calcium 9.0, Phosphorus 2.4 L, Magnesium 1.8, Total Bilirubin 0.5, AST 30, ALT 21, Alkaline Phosphatase 105, Troponin I < 0.01, Total Protein 7.5, Albumin 3.9, Globulin 3.6 H, Albumin/Globulin Ratio 1.1, TSH 5.91 H, Free T4 1.20, HCV Ab TATY w/Rflx PCR Qn Negative, HIV Ag/Ab Combo Qual Negative 12/08/24 22:34: Troponin I 0.06 H 12/09/24 01:15: PT 11.1, INR 0.99, Troponin I 0.07 H 12/09/24 03:55: WBC 8.1, RBC 4.39 L, Hgb 13.8 L, Hct 41.1 L, MCV 93.6, MCH 31.4 H, MCHC 33.6, RDW 12.9, Plt Count 213, MPV 9.6, Neut % (Auto) 63.7, Lymph % (Auto) 25.5, [place] % (Auto) 8.2, Eos % (Auto) 1.6, Baso % (Auto) 0.5, Neut # (Auto) 5.2, Lymph # (Auto) 2.1, [place] # (Auto) 0.7, Eos # (Auto) 0.1, Baso # (Auto) 0.0, PT 11.3, INR 1.01, Sodium 137, Potassium 4.4, Chloride 103, Carbon Dioxide 30, Anion Gap 8.4, BUN 18, Creatinine 1.00, Estimated Creat Clear 79, Estimated GFR 72, Est GFR ( Amer) 88, Glucose 114 H, Calcium 8.7, Phosphorus 3.3 D, Magnesium 1.9, Troponin I 0.07 H, NT-Pro-B Natriuret Pep 393, Triglycerides 92, Cholesterol 122 L, LDL Cholesterol Direct 57.49 L, VLDL Cholesterol 18, HDL Cholesterol 37 L, Cholesterol/HDL Ratio 3.3 I & O for Last 24 hours: Intake & Output 12/06/24 12/07/24 12/08/24 12/09/24 23:59 23:59 23:59 23:59 Intake Total 410 / 410 Output Total 0 / 0 Balance 410 / 410 Weight 90.718 kg 90.265 kg Intake & Output 12/06/24 12/07/24 12/08/24 12/09/24 23:59 23:59 23:59 23:59 Intake Total 410 / 410 Output Total 0 / 0 Balance 410 / 410 Weight 200 lb 199 lb Constitutional Constitutional: no acute distress and average body habitus *Routine HEENT Exam Head: Present normocephalic and atraumatic ENT: Present mucous membranes moist *Routine Neck Exam Neck: Present supple, full ROM and normal carotid upstroke; Absent JVD, carotid bruit or lymphadenopathy *Routine Respiratory Exam Respiratory: Present CTA bilaterally, normal respiratory effort, able to speak in complete sentences and symmetric chest movement *Routine Cardiovascular Exam Cardiovascular: Present RRR, Normal S1 and Normal S2; Absent murmur or gallop *Routine Abdominal Exam Abdominal: Present soft and normoactive bowel sounds; Absent tenderness, distended or organomegaly *Routine Extremities Exam Extremities: Present full ROM, pulses intact and normal capillary refill; Absent cyanosis, clubbing or edema *Routine Skin Exam Skin: Present intact and warm; Absent erythema *Routine Neurological Exam Neurological: Present alert, oriented X3 and CN II-XII intact; Absent sensory deficit or motor deficit Routine Psychiatric Exam Psychiatric: Present normal affect Results Data Completed and Pending Labs on day of discharge: Labs from last 24 hours 12/09/24 12/09/24 12/09/24 11:25 03:55 01:15 WBC 8.1 RBC 4.39 L Hgb 13.8 L Hct 41.1 L MCV 93.6 MCH 31.4 H MCHC 33.6 RDW 12.9 Plt Count 213 MPV 9.6 Neut % (Auto) 63.7 Lymph % (Auto) 25.5 [place] % (Auto) 8.2 Eos % (Auto) 1.6 Baso % (Auto) 0.5 Neut # (Auto) 5.2 Lymph # (Auto) 2.1 [place] # (Auto) 0.7 Eos # (Auto) 0.1 Baso # (Auto) 0.0 PT 11.3 11.1 INR 1.01 0.99 D-Dimer Sodium 137 Potassium 4.4 Chloride 103 Carbon Dioxide 30 Anion Gap 8.4 BUN 18 Creatinine 1.00 Estimated Creat Clear 79 Estimated GFR 72 Est GFR ( Amer) 88 Glucose 114 H Calcium 8.7 Phosphorus 3.3 D Magnesium 1.9 Total Bilirubin AST ALT Alkaline Phosphatase Troponin I 0.07 H 0.07 H NT-Pro-B Natriuret Pep 393 Total Protein Albumin Globulin Albumin/Globulin Ratio Triglycerides 92 Cholesterol 122 L LDL Cholesterol Direct 57.49 L VLDL Cholesterol 18 HDL Cholesterol 37 L Cholesterol/HDL Ratio 3.3 TSH Free T4 Chlamy pneumoniae PCR Not detected Adenovirus (PCR) Not detected B. pertussis DNA (PCR) Not detected Coronavirus OC43 (PCR) Not detected Coronavirus HKU1 (PCR) Not detected Coronavirus 229E (PCR) Not detected SARS-CoV-2 (PCR) Not detected Coronavirus NL63 (PCR) Not detected HCV Ab TATY w/Rflx PCR Qn HIV Ag/Ab Combo Qual Human Metapneumovir PCR Not detected Influenza A (H1) PCR Not detected Influ A (H1N1/) PCR Not detected Influenza A (H3) PCR Not detected Influenza Type A (PCR) Not detected Influenza Type B (PCR) Not detected M. pneumoniae (PCR) Not detected Parainfluenza 1 (PCR) Not detected Parainfluenza 2 (PCR) Not detected Parainfluenza 3 (PCR) Not detected Parainfluenza 4 (PCR) Not detected RSV (PCR) Not detected Entero/Rhino (PCR) Not detected 12/08/24 12/08/24 22:34 19:47 WBC 9.3 RBC 4.74 Hgb 14.7 Hct 44.2 MCV 93.2 MCH 31.0 MCHC 33.3 RDW 13.0 Plt Count 223 MPV 9.4 Neut % (Auto) 67.2 Lymph % (Auto) 21.1 [place] % (Auto) 8.6 Eos % (Auto) 2.4 Baso % (Auto) 0.4 Neut # (Auto) 6.3 Lymph # (Auto) 2.0 [place] # (Auto) 0.8 Eos # (Auto) 0.2 Baso # (Auto) 0.0 PT INR D-Dimer 0.37 Sodium 138 Potassium 4.2 Chloride 105 Carbon Dioxide 28 Anion Gap 9.2 BUN 20 Creatinine 1.10 Estimated Creat Clear 72 Estimated GFR 65 Est GFR ( Amer) 79 Glucose 121 H Calcium 9.0 Phosphorus 2.4 L Magnesium 1.8 Total Bilirubin 0.5 AST 30 ALT 21 Alkaline Phosphatase 105 Troponin I 0.06 H < 0.01 NT-Pro-B Natriuret Pep Total Protein 7.5 Albumin 3.9 Globulin 3.6 H Albumin/Globulin Ratio 1.1 Triglycerides Cholesterol LDL Cholesterol Direct VLDL Cholesterol HDL Cholesterol Cholesterol/HDL Ratio TSH 5.91 H Free T4 1.20 Chlamy pneumoniae PCR Adenovirus (PCR) B. pertussis DNA (PCR) Coronavirus OC43 (PCR) Coronavirus HKU1 (PCR) Coronavirus 229E (PCR) SARS-CoV-2 (PCR) Coronavirus NL63 (PCR) HCV Ab TATY w/Rflx PCR Qn Negative HIV Ag/Ab Combo Qual Negative Human Metapneumovir PCR Influenza A (H1) PCR Influ A (H1N1/) PCR Influenza A (H3) PCR Influenza Type A (PCR) Influenza Type B (PCR) M. pneumoniae (PCR) Parainfluenza 1 (PCR) Parainfluenza 2 (PCR) Parainfluenza 3 (PCR) Parainfluenza 4 (PCR) RSV (PCR) Entero/Rhino (PCR) DS: Diagnosis Discharge Diagnosis (1) Non-ST elevation (NSTEMI) myocardial infarction: Status: Acute Code(s): I21.4 - Non-ST elevation (NSTEMI) myocardial infarction (2) SVT (supraventricular tachycardia): Status: Acute Code(s): I47.10 - Supraventricular tachycardia, unspecified (3) Pulmonary fibrosis: Status: Acute Code(s): J84.10 - Pulmonary fibrosis, unspecified (4) Coronary artery disease: Status: Acute Code(s): I25.10 - Atherosclerotic heart disease of [place] coronary artery without angina pectoris Qualifiers: Associated angina: with other forms of angina Coronary Disease-Associated Artery/Lesion type: [place] artery [place] vs. transplanted heart: [place] heart Qualified Code(s): I25.118 - Atherosclerotic heart disease of [place] coronary artery with other forms of angina pectoris (5) Hypertension: Status: Acute Code(s): I10 - Essential (primary) hypertension Qualifiers: Hypertension type: primary hypertension Qualified Code(s): I10 - Essential (primary) hypertension (6) Hyperlipidemia: Status: Acute Code(s): E78.5 - Hyperlipidemia, unspecified Qualifiers: Hyperlipidemia type: mixed hyperlipidemia Qualified Code(s): E78.2 - Mixed hyperlipidemia (7) History of prior ablation treatment: Status: Acute Code(s): Z98.890 - Other specified postprocedural states (8) History of coronary artery stent placement: Status: Acute Code(s): Z95.5 - Presence of coronary angioplasty implant and graft Meds Home Medications and Allergies Home Medications ?Medication ?Instructions ?Recorded ?Confirmed ?Type losartan 25 mg tablet 25 mg PO DAILY 02/08/18 12/09/24 History metoprolol succinate 50 mg 50 mg PO BID 02/08/18 12/09/24 History tablet,extended release 24 hr rosuvastatin 20 mg tablet 20 mg PO DAILY 02/08/18 12/09/24 History tamsulosin 0.4 mg capsule 0.4 mg PO DAILY 02/08/18 12/09/24 History aspirin 81 mg capsule 81 mg PO DAILY 12/09/24 12/09/24 History clopidogrel 75 mg tablet 75 mg PO DAILY 12/09/24 12/09/24 History isosorbide mononitrate 30 mg 30 mg PO DAILY 12/09/24 12/09/24 History tablet,extended release 24 hr levothyroxine 50 mcg tablet 50 mcg PO DAILY 12/09/24 12/09/24 History montelukast 10 mg tablet 10 mg PO HS 12/09/24 12/09/24 History New Prescriptions to Start Prescriptions: Allergies Allergy/AdvReac Type Severity Reaction Status Date / Time atorvastatin (ATORVASTATIN) Allergy Unknown muscles Verified 12/08/24 22:06 sore Penicillins (PENICILLINS) Allergy Unknown pass out Verified 12/08/24 22:06 Discharge Plan Disposition Patient Disposition: Home, Self-Care Condition: Fair Discharge Order Discharge Orders: Discharge Order (Routine); Ordered 12/09/24 Ordered By: Scooby Merino Follow up Plan Follow up with: Sri Garza APRN [Nurse Practitioner] - Enter time for follow up Abeba Joaquin MD [Physician] - Enter time for follow up (Pulmonary fibrosis) Prescriptions/Medication Reconciliation: Continued losartan 25 mg tablet 25 mg PO DAILY rosuvastatin 20 mg tablet 20 mg PO DAILY tamsulosin 0.4 mg capsule,extended release 24hr 0.4 mg PO DAILY metoprolol succinate 50 mg tablet extended release 24 hr 50 mg PO BID clopidogrel 75 mg tablet 75 mg PO DAILY Patient Comments: TAKE 1 TABLET BY MOUTH ONCE DAILY levothyroxine 50 mcg tablet 50 mcg PO DAILY Patient Comments: TAKE 1 TABLET BY MOUTH ONCE DAILY IN THE MORNING ON AN EMPTY STOMACH montelukast 10 mg Tablet 10 mg PO HS aspirin 81 mg Capsule 81 mg PO DAILY isosorbide mononitrate 30 mg tablet extended release 24 hr 30 mg PO DAILY Patient Comments: TAKE 1 TABLET BY MOUTH ONCE DAILY Problem Reconciliation Problems Reviewed?: Yes Patient Discharge Instructions Patient Instructions: DI for Heart Attack, Paroxysmal Supraventricular Tachycardia, DI for Paroxysmal Supraventricular Tachycardia Print Language: [place] Providers Primary Care Provider: Vandana Evans Admit Provider: Scooby Merino Attending Provider: Scooby Merino
--- NOTE | 2024-12-09 16:10 | PC.NURSE ---
Pt is currently resting in bed with tracelet on at this time from cardiac cath technician. 2 ML of air removed at tis time. No complaints stated. VSS. Pt is on 2L O2 NC. Pt requests coffee. is at bedside. Call light within reach.
[2024-12-09] MEDS: IOPAMIDOL-370 (76%);100ML BOTTLE 140 ML IV (16:23)
--- NOTE | 2024-12-09 18:25 | PC.NURSE ---
Radial tracelet off. DSx2 and tegaderm in place. Pt educated on after cath care. Family in room. RT notified to bring event monitor. IV DC. No concerns at this time. Call light within reach.
--- NOTE | 2024-12-09 19:55 | PC.NURSE ---
Patient left floor with staff for home at 19:52.
--- NOTE | 2024-12-10 10:42 | SW/DCPLANNER ---
Spoke with patient on the phone. Patient stated that he is feeling better. Patient stated that his hasnt called yet to schedule his upcoming appointments yet. 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 Patient stated that he has no concerns or questions at this time. Aries Busch
== END 2024-12-09 19:55 | disposition home or self-care (01) | DRG 281 ==
LOC: ER 21:04 → 2ND 12-09 00:16
PROVIDERS: Internal Medicine; Nurse Practitioner; Nurse Practitioner Family; Admitting Provider Student in an Organized Health Care Education/Training Program; Emergency Provider Student in an Organized Health Care Education/Training Program; PCP Nurse Practitioner Family; Visit Provider Student in an Organized Health Care Education/Training Program
DX: I21.4 Non-ST elevation (NSTEMI) myocardial infarction (principal); I47.10 Supraventricular tachycardia, unspecified; I25.118 Atherosclerotic heart disease of native coronary artery with other forms of angina pectoris; Z88.0 Allergy status to penicillin; Z88.1 Allergy status to other antibiotic agents; Z79.899 Other long term (current) drug therapy; I10 Essential (primary) hypertension; J84.10 Pulmonary fibrosis, unspecified; Z99.81 Dependence on supplemental oxygen; Z95.5 Presence of coronary angioplasty implant and graft; Z98.890 Other specified postprocedural states; E03.9 Hypothyroidism, unspecified
CPT/HCPCS: 36415; 71045; 71250; 80048; 80053; 80061; 83735; 83880; 84100; 84439; 84443; 84484; 85025; 85378; 85610; 86803; 87389; 87633; 93005; 93270; 93272; 93306; 93458; 99152; 99153; 99285; C1725; C1769; J1200; J1644; J2250; J3010; J3475; Q9967

== ENCOUNTER 2025-08-26 09:03 | Emergency (ER) | payer MEDICARE, SELFPAY ==
[2025-08-26] VITALS (10 sets, daily range): BP systolic 116–140; BP diastolic 75–86; PULSE 69–84; RESP 16–19; TEMP 36.6–36.8; O2SAT 89–98; BMI 25.8
--- NOTE | 2025-08-26 09:04 | ECG_ITS ---
APPROVED REPORT Exam: Resting ECG HR:88 bpm ECG Measurements Heart Rate 88 AXES OK 170 P 39 QRSd 93 QRS 11 QT 358 T -3 QTc 403 Conclusion SINUS RHYTHM WITH OCCASIONAL VENTRICULAR PREMATURE COMPLEXES MINIMAL VOLTAGE CRITERIA FOR LVH, CONSIDER NORMAL VARIANT [MEETS CRITERIA IN ONE OF: R(aVL), S(V1), R(V5), R(V5/V6)+S(V1)] MINIMAL ST DEPRESSION [0.025+ mV ST DEPRESSION] BORDERLINE ECG UNCONFIRMED REPORT Electronically signed by : Edenilson Prabhakar, 08/26/2025 15:00:19
--- NOTE | 2025-08-26 09:50 | XR_ITS ---
FINAL REPORT CLINICAL HISTORY: Shortness of breath COMPARISON: None FINDINGS: The heart size is mildly enlarged. The mediastinum is normal. Extensive coarse interstitial opacity in both lungs is consistent with chronic fibrosis. No acute infiltrate. There are no pleural effusions. There is no pneumothorax. There is no osseous abnormality. IMPRESSION: No acute cardiopulmonary process. Chronic fibrosis Reviewed, Interpreted and Dictated by Romeo Song MD Transcribed by Yanelis Brooke Authenticated and [facility]
--- NOTE | 2025-08-26 09:51 | [facility].EDGENADL ---
Discharge Plan Disposition Patient Disposition: Home, Self-Care Prescriptions Prescriptions: New prednisone 50 mg tablet 50 mg PO DAILY 5 Days Qty: 5 0RF Rx Instructions: Please begin 1 day after ED visit levofloxacin 750 mg tablet 750 mg PO DAILY 7 Days Qty: 7 0RF No Action losartan 25 mg tablet 25 mg PO DAILY rosuvastatin 20 mg tablet 20 mg PO DAILY tamsulosin 0.4 mg capsule,extended release 24hr 0.4 mg PO DAILY metoprolol succinate 50 mg tablet extended release 24 hr 50 mg PO BID clopidogrel 75 mg tablet 75 mg PO DAILY Patient Comments: TAKE 1 TABLET BY MOUTH ONCE DAILY levothyroxine 50 mcg tablet 50 mcg PO DAILY Patient Comments: TAKE 1 TABLET BY MOUTH ONCE DAILY IN THE MORNING ON AN EMPTY STOMACH montelukast 10 mg Tablet 10 mg PO HS aspirin 81 mg Capsule 81 mg PO DAILY isosorbide mononitrate 30 mg tablet extended release 24 hr 30 mg PO DAILY Patient Comments: TAKE 1 TABLET BY MOUTH ONCE DAILY Referrals Follow up/Referrals: Vandana Evans [Primary Care Provider, Medical] - See instructions Activity Restrictions/Add. Instructions Additional Instructions/Restrictions: Please continue to use your oxygen as needed at home take your antibiotics and your steroids and follow-up closely with your grape pruner. Clinical Impressions Clinical Impression: Acute exacerbation of idiopathic pulmonary fibrosis Print Language Print Language: Belarusian Discharge ED Provider: Christiano Prabhakar General Adult HPI General Chief complaint: Shortness of Breath/Dyspnea Stated complaint: SOA Time Seen by Provider: 08/26/25 09:38 Mode of Arrival: EMS Source of Information: Patient and EMS Description of Symptoms (Recalled from ER Triage Doc. by RN): EMS was called out for pt having shortness of breath. EMS reports that the pt has scar tissue on his lungs that he is currently being treated for. pt on 3-3.5L 02 NC PRN. pt was on 4L 02 NC at home when EMS arrived. pt states that he started having shortness of breath last night and notcied he need to use his oxygen more. Denies chest pain. pt states he has had a cough over the past week. pt reports that the shortness of breath has improved while being on oxygen. History of Present Illness HPI narrative: Patient is a 80-year-old with a diagnosis of idiopathic pulmonary fibrosis followed by grape pruner and [place] at [facility] 2 is treated with a specialty antibody for this who presents today with worsening shortness of breath. Has been followed by his grape pruner with slow progression he states. Over the last 24 to 48 hours has had worsening in his symptoms with exertional dyspnea requiring oxygen at home that he has. Typically does not wear oxygen. Denies any fevers or chills worsening cough or any other symptoms just shortness of breath. Denies any lower extremity edema or swelling or history of DVT or PE. Related Data Home Medications ?Medication ?Instructions ?Recorded ?Confirmed losartan 25 mg tablet 25 mg PO DAILY 02/08/18 12/09/24 metoprolol succinate 50 mg 50 mg PO BID 02/08/18 12/09/24 tablet,extended release 24 hr rosuvastatin 20 mg tablet 20 mg PO DAILY 02/08/18 12/09/24 tamsulosin 0.4 mg capsule 0.4 mg PO DAILY 02/08/18 12/09/24 aspirin 81 mg capsule 81 mg PO DAILY 12/09/24 12/09/24 clopidogrel 75 mg tablet 75 mg PO DAILY 12/09/24 12/09/24 isosorbide mononitrate 30 mg 30 mg PO DAILY 12/09/24 12/09/24 tablet,extended release 24 hr levothyroxine 50 mcg tablet 50 mcg PO DAILY 12/09/24 12/09/24 montelukast 10 mg tablet 10 mg PO HS 12/09/24 12/09/24 Previous Rx's ?Medication ?Instructions ?Recorded levofloxacin 750 mg tablet 750 mg PO DAILY 7 days #7 tabs 08/26/25 prednisone 50 mg tablet 50 mg PO DAILY 5 days #5 tabs 08/26/25 Allergies Allergy/AdvReac Type Severity Reaction Status Date / Time atorvastatin (ATORVASTATIN) Allergy Unknown muscles Verified 12/08/24 22:06 sore Penicillins (PENICILLINS) Allergy Unknown pass out Verified 12/08/24 22:[address] [facility] Disclaimer: The information contained in this section may have been updated after the patient was seen, as this information can be updated by other users. Medical History (Updated 08/26/25 @ 09:50 by Christiano Prabhakar MD) Hyperlipidemia Coronary artery disease Osteoarthritis Hypertension Prostate cancer History of left heart catheterization Surgical History History of coronary artery stent placement History of prior ablation treatment History of cardiac ablation for atrial fibrillation H/O hernia repair History of appendectomy Social History Smoking Status: Never smoker alcohol intake: never current occupational status: retired Travel in the last 8 weeks?: None Have you lived/traveled outside [place] in past 30 days?: No Contact w/someone who lives/traveled outside US past 30 days?: No Exposure to someone with infectious disease in past 14 days?: No Do you have a fever (greater than 100.4 F or 38 C)?: No Have you tested positive for COVID-19?: No Exposed to someone with COVID-19 in past 14 days?: No Do you have a sore throat?: No Do you have a cough?: No Do you have any weakness?: No Do you have any diarrhea?: No Are you experiencing any unusual bleeding?: No Do you have any muscle aches/pain?: No Do you have any abdominal pain?: No Are you experiencing loss of taste or smell?: No Other Medical History Have you received the Flu Vaccine for this season: No Have you received the Pneumonia Vaccine: No ROS Obtained: Yes All systems reviewed & no additional complaints except as documented Physical Exam General General appearance: alert and in no apparent distress Respiratory Respiratory exam: Present other (No respiratory distress oxygen saturations on nasal cannula he does have very coarse breath sounds in bilateral bases no accessory muscle use he is able to speak to me without any difficulty) Cardiovascular Cardiovascular exam: Present regular rate Neurological Exam Neurological exam: Present alert and oriented X3 Medical Decision Making Medical Records Screening: Per USPSTF and CDC recommendations, given the prevalence of disease in our region, it is our hospital?s policy to screen for HIV and viral Hepatitis for all patients aged 18 and over and those with ongoing risk factors. Ravi Inquiry Pt receiving controlled substance: No Vital Signs: 08/26/25 09:04 08/26/25 09:04 08/26/25 09:05 Temperature 98.2 F 98.2 F Temperature Source Oral Oral Pulse Rate 84 Pulse Rate [Right] 84 Respiratory Rate 19 19 Blood Pressure 123/80 Blood Pressure [Right Arm] 123/80 Blood Pressure Mean Blood Pressure Mean [Right Arm] 94 Blood Pressure Source Automatic Cuff Blood Pressure Source [Right Arm] Automatic Cuff Blood Pressure Position Supine Blood Pressure Position [Right Arm] Supine 02 Sat by Pulse Oximetry 89 L 89 L 97 Oxygen Delivery Method Room Air Room Air Nasal Cannula Oxygen Flow Rate (LPM) 3 08/26/25 09:22 08/26/25 09:30 08/26/25 10:00 Temperature Temperature Source Pulse Rate 79 72 Pulse Rate [Right] Respiratory Rate 16 Blood Pressure 125/79 116/78 Blood Pressure [Right Arm] Blood Pressure Mean Blood Pressure Mean [Right Arm] Blood Pressure Source Blood Pressure Source [Right Arm] Blood Pressure Position Blood Pressure Position [Right Arm] 02 Sat by Pulse Oximetry 97 97 96 Oxygen Delivery Method Nasal Cannula Oxygen Flow Rate (LPM) 3 08/26/25 10:30 08/26/25 11:00 08/26/25 11:31 Temperature Temperature Source Pulse Rate 71 76 75 Pulse Rate [Right] Respiratory Rate 18 Blood Pressure 125/80 123/83 140/86 Blood Pressure [Right Arm] Blood Pressure Mean 98 98 Blood Pressure Mean [Right Arm] Blood Pressure Source Blood Pressure Source [Right Arm] Blood Pressure Position Blood Pressure Position [Right Arm] 02 Sat by Pulse Oximetry 96 96 95 Oxygen Delivery Method Nasal Cannula Oxygen Flow Rate (LPM) 3 08/26/25 12:01 Temperature Temperature Source Pulse Rate 71 Pulse Rate [Right] Respiratory Rate 16 Blood Pressure 128/75 Blood Pressure [Right Arm] Blood Pressure Mean 90 Blood Pressure Mean [Right Arm] Blood Pressure Source Blood Pressure Source [Right Arm] Blood Pressure Position Blood Pressure Position [Right Arm] 02 Sat by Pulse Oximetry 98 Oxygen Delivery Method Nasal Cannula Oxygen Flow Rate (LPM) 3 Lab Data Lab results reviewed: Yes I reviewed the patient's lab results. Lab Results 08/26/25 09:09: WBC 9.1, RBC 3.72 L, Hgb 11.4 L, Hct 35.1 L, MCV 94.4 H, MCH 30.6, MCHC 32.5, RDW 13.2, Plt Count 284, MPV 10.0, Neut % (Auto) 76.1, Lymph % (Auto) 16.2, [place] % (Auto) 6.5, Eos % (Auto) 0.7, Baso % (Auto) 0.3, Neut # (Auto) 6.9, Lymph # (Auto) 1.5, [place] # (Auto) 0.6, Eos # (Auto) 0.1, Baso # (Auto) 0.0, D-Dimer 0.82 H, Sodium 132 L, Potassium 3.5, Chloride 99, Carbon Dioxide 30, Anion Gap 6.5, BUN 8 L, Creatinine 0.90, Estimated Creat Clear 68, Estimated GFR 82, Est GFR ( Amer) 99, Glucose 140 H, Calcium 8.5, Total Bilirubin 0.8, AST 33, ALT 23, Alkaline Phosphatase 85, Troponin I < 0.01, NT-Pro-B Natriuret Pep 222, Total Protein 6.4, Albumin 3.2 L, Globulin 3.2, Albumin/Globulin Ratio 1.0 L, Procalcitonin 0.067, HCV Ab TATY w/Rflx PCR Qn Negative, HIV Ag/Ab Combo Qual Negative 08/26/25 09:09 08/26/25 09:09 Orders (Tests/Meds): ED MEDICATIONS Generic Name Dose Route Start Last Admin Trade Name Freq PRN Reason Stop Dose Admin Sodium Chloride 3 ml 08/26/25 11:15 Sodium Chloride 3% 15ml Neb IH 09/25/25 11:14 ONCE PRN INDUCE SPUTUM COLLECTION Discontinued Medications Generic Name Dose Route Start Last Admin Trade Name Freq PRN Reason Stop Dose Admin Iopamidol 80 ml 08/26/25 11:31 08/26/25 11:32 Iopamidol-370 (76%);100ml Bottle IV 08/26/25 11:32 80 ml ONCE ONE Administration Sodium Chloride 10 ml 08/26/25 11:31 08/26/25 11:32 Sodium Chloride 0.9% 10ml Syr (Rad Only) IV 08/26/25 11:32 10 ml ONCE ONE Administration Sodium Chloride 50 ml 08/26/25 11:31 08/26/25 11:31 0.9 % Sodium Chloride 50 Ml Vial IV 08/26/25 11:32 50 ml ONCE ONE Administration ORDERS Category Date Time Status CT angio chest PE protocol Stat Cat Scan 08/26/25 11:15 Taken CXR --portable [XR chest portable] Stat Exams 08/26/25 09:50 Completed BNP [NT Pro Brain Natriuretic Pep.] Stat Lab 08/26/25 09:09 Completed CBC w/Auto Diff [Complete Blood Count Auto Diff] Stat Lab 08/26/25 09:09 Completed CMP [Comprehensive Metabolic Panel] Stat Lab 08/26/25 09:09 Completed CRP [C-Reactive Protein] Stat Lab 08/26/25 09:04 Received D-Dimer Stat Lab 08/26/25 09:09 Completed Diarrhea 23 Panel, PCR Stat Lab 08/26/25 09:49 Ordered Full Resp Panel w/COVID ([facility]) Routine Lab 08/26/25 10:06 Received HIV Combo Stat Lab 08/26/25 09:09 Completed Hepatitis C Ab Qual. 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 This could be infectious, worsening associated with pulmonary hypertension or heart failure or an MA or pulmonary embolism etc. Broad workup is pending will reassess after his initial workup including imaging and labs have been done. Reassessment at 12:[address] scan was performed as chest x-ray was equivocal which demonstrated worsening fibrosis and some ground glass opacities concerning for possible infectious etiology. Patient is very stable clinically I discussed the case with Dr. Mcbride the patient would like to follow-up with his grape pruner to soon as possible we started the patient on steroids as well as Levaquin and other labs were sent including LDH and CRP for his grape pruner to follow-up on. Ultimately patient was very stable has an acute exacerbation of his pulmonary fibrosis and will follow-up closely with his grape pruner outpatient. He also will continue his oxygen 24/7 at home. Critical Care Critical Care Time Critical Care Time: Yes Attestation: On 08/26/25, the high probability of a clinically significant, sudden or life threatening deterioration of the following system(s) required my full and direct attention, intervention and personal management. The time I documented below is in addition to time spent performing reported procedures but includes the following listed in this critical care notation. Total Time Total Critical Care Time: 35
[2025-08-26 09:56] LABS: Hematocrit 35.1 % (42.0-52.0); Hemoglobin 11.4 g/dL (14.1-18.0); Immature Granulocytes % 0.2 %; Mean Corpuscular HGB Conc 32.5 g/dL (31.8-35.4); Mean Corpuscular Hemoglobin 30.6 pg (27.0-31.2); Mean Corpuscular Volume 94.4 fl (80-94); Nucleated Red Blood Cells % 0 %; Platelet Count 284 K/mm3 (142-424); Red Blood Count 3.72 M/mm3 (4.60-6.20); Red Cell Distribution Width-SD 45.5 fL; White Blood Count 9.1 K/mm3 (4.8-10.8)
[2025-08-26 10:03] LABS: Alanine Aminotransferase 23 U/L (12-78); Albumin Level 3.2 g/dl (3.5-5.0); Albumin/Globulin Ratio 1.0 (1.1-1.8); Alkaline Phosphatase 85 U/L (38-126); Anion Gap 6.5 mEq/L (5-15); Aspartate Amino Transferase 33 U/L (17-59); Bilirubin,Total 0.8 mg/dl (0.2-1.3); Blood Urea Nitrogen 8 mg/dl (9-20); Calcium 8.5 mg/dl (8.4-10.2); Carbon Dioxide 30 mmol/L (22.0-30.0); Chloride 99 mmol/L (98-107); Creatinine Clearance Estimated 68 mL/min (50-200); Creatinine,Serum 0.90 mg/dl (0.66-1.25); Estimated Glomerular Filt Rate 82 ml/min (>60); GFR (African American) 99 ML/MIN (>60); Globulin 3.2 g/dL (1.3-3.2); Glucose 140 mg/dl (74-100); Potassium 3.5 mmoL/L (3.5-5.1); Sodium 132 mmol/L (136-145); Total Protein,Serum 6.4 g/dl (6.3-8.2)
[2025-08-26 10:07] LABS: Adenovirus,PCR Not Detected (NotDetected); Chlamydophila Pneumoniae, PCR Not Detected (NotDetected); Coronavirus 19, PCR Not Detected (NotDetected); Coronovirus HKU1,PCR Not Detected (NotDetected); Influenza A, PCR Not Detected (NotDetected); Influenza AH1, 2009 Not Detected (NotDetected); Influenza AH1, PCR Not Detected (NotDetected); Influenza AH3,PCR Not Detected (NotDetected); Influenza B, PCR Not Detected (NotDetected); Mycoplasma Pneumoniae, PCR Not Detected (NotDetected); Parainfluenza 1, PCR Not Detected (NotDetected); Parainfluenza 2, PCR Not Detected (NotDetected); Parainfluenza 3, PCR Not Detected (NotDetected); Parainfluenza 4, PCR Not Detected (NotDetected)
[2025-08-26 10:07] LABS: D-Dimer 0.82 ug/mL (0.0-0.5)
[2025-08-26 10:18] LABS: Troponin I < 0.01 ng/ml (0.00-0.034)
[2025-08-26 10:42] LABS: NT Pro Brain Natriuretic Pep. 222 pg/mL (0-450)
--- NOTE | 2025-08-26 11:15 | CT_ITS ---
FINAL REPORT TECHNIQUE: Postcontrast axial images of the chest were performed in a CTA protocol. This study was performed with techniques to keep radiation doses as low as reasonably achievable, (ALARA). Individualized dose reduction technique using automated exposure control or adjustment of mA and/or kV according to the patient's size were employed. CLINICAL HISTORY: acute exacerbation of pulmonary fibrosis FINDINGS: The heart is normal in size. No pleural or pericardial effusion is identified. The thoracic aorta is normal in caliber with no focal aneurysm or dissection identified. There is no filling defect to suggest pulmonary embolism. There is moderate mediastinal adenopathy. Lymph nodes are seen measuring up to 2 cm in greatest dimension. There is coarse pulmonary fibrosis throughout both lungs, particularly at the lung bases. No prior exam is available for comparison. However, findings appear to be advanced. Limited imaging of the upper abdomen demonstrates a tiny, nonobstructing left renal stone measuring 3 mm. IMPRESSION: No evidence for PE on this exam. Advanced changes of pulmonary fibrosis with mediastinal adenopathy, favor reactive. Nonobstructing left nephrolithiasis. Reviewed, Interpreted and Dictated by Romeo Song MD Transcribed by Sandra High Authenticated and [facility]
[2025-08-26] MEDS: 0.9 % SODIUM CHLORIDE 50 ML VIAL IV (11:31)
[2025-08-26] MEDS: IOPAMIDOL-370 (76%);100ML BOTTLE 80 ML IV (11:32)
[2025-08-26] MEDS: SODIUM CHLORIDE 0.9% 10ML SYR (RAD ONLY) 10 ML IV (11:32)
[2025-08-26 12:04] LABS: Procalcitonin 0.067 ng/mL (0.0-2.0)
[2025-08-26 12:12] LABS: Hepatitis C Ab Qual. W/ RFX NEGATIVE (Negative)
[2025-08-26 12:40] LABS: C-Reactive Protein 33.4 mg/L (0-4)
== END 2025-08-26 12:38 | disposition home or self-care (01) ==
PROVIDERS: Emergency Provider Student in an Organized Health Care Education/Training Program; PCP Nurse Practitioner Family
DX: J84.112 Idiopathic pulmonary fibrosis (principal); R06.02 Shortness of breath; B34.8 Other viral infections of unspecified site; I10 Essential (primary) hypertension; E78.5 Hyperlipidemia, unspecified
CPT/HCPCS: 0223U; 71045; 71275; 80053; 83615; 83880; 84145; 84484; 85025; 85378; 86140; 86803; 87389; 93005; 99285; Q9967